=== PATIENT | female | born 1980 | race Caucasian/White ===

== ENCOUNTER 2017-02-23 15:39 | Emergency (ER) | payer MEDICAID ==
[~2017-02-23] VITALS: Ht 153.7 cm; Wt 70.9 kg
[2017-02-23 15:44] VITALS: BP 108/71
--- NOTE | 2017-02-23 16:55 | NUR ---
PT AMBULATED TO BED 5 AT THIS TIME.
--- NOTE | 2017-02-23 17:05 | NUR ---
CHARGE NURSE AND EMT COLLECTED SPECIMEN FROM NIPPLE DISCHARGE.
--- NOTE | 2017-02-23 17:14 | NUR ---
PATIENT PRESENTS TO ED WITH C/O "BLACK DISCHARGE" FROM BL NIPPLES X YESTERDAY. PT STATES HAS HAD BL BREAST PAIN X 2 MONTHS. DENIES ANY HX;DENIES N/V/D; SKIN IS PINK/WARM/DRY; AAOX4 WITH EVEN AND STEADY GAIT; LUNGS CLEAR BL; HR EVEN AND REGULAR; PT DENIES ANY FEVER, CP, SOB, OR COUGH AT THIS TIME; PATIENT STATES PAIN OF 8/10 AT THIS TIME; VSS; PATIENT POSITIONED FOR COMFORT; HOB ELEVATED; BEDRAILS UP X2; BED DOWN. ALL MONITORS IN PLACED;ER MD MADE AWARE OF PT STATUS.
--- NOTE | 2017-02-23 17:15 | NUR ---
XRAY AT BEDSIDE.
[2017-02-23 17:31] LABS: BASOPHILS # (AUTO) 0.2 K/uL (0.00-0.22); BASOPHILS % (AUTO) 1.8 % (0.0-2.0); EOSINOPHILS # (AUTO) 1.3 K/uL (0-0.4); EOSINOPHILS % (AUTO) 11.8 % (0.0-4.0); HEMOGLOBIN 12.5 g/dL (12.0-16.0); LYMPHOCYTES # (AUTO) 3.3 K/uL (2.5-16.5); LYMPHOCYTES % (AUTO) 30.5 % (20.5-51.1); MEAN CORPUSCULAR HEMOGLOBIN 29 pg (27-31); MEAN CORPUSCULAR HGB CONC 33 g/dL (33-37); MEAN CORPUSCULAR VOLUME 87 fL (80-94); MONOCYTES # (AUTO) 0.6 K/uL (0.8-1.0); MONOCYTES % (AUTO) 5.1 % (1.7-9.3); NEUTROPHILS # (AUTO) 5.6 K/uL (1.8-7.7); NEUTROPHILS % (AUTO) 50.8 % (42.2-75.2); PLATELET COUNT (AUTO) 247 K/uL (140-450); RED BLOOD CELL COUNT(AUTO) 4.38 MIL/uL (4.20-5.40); RED CELL DISTRIBUTION WIDTH 12.5 % (11.6-13.7); WHITE BLOOD COUNT (AUTO) 10.9 K/uL (4.8-10.8)
--- NOTE | 2017-02-23 17:50 | NUR ---
PT BACK FROM US VIA WHEELCHAIR
[2017-02-23 18:02] LABS: CALCIUM 8.8 mg/dL (8.5-10.1); CARBON DIOXIDE 26.8 mmol/L (21-32); CREATININE 0.7 mg/dL (0.6-1.3); POTASSIUM 3.8 mmol/L (3.5-5.1)
[2017-02-23 18:08] LABS: ALBUMIN 3.4 g/dL (3.4-5.0); TOTAL BILIRUBIN 0.3 mg/dL (0.0-1.0)
--- NOTE | 2017-02-23 18:55 | NUR ---
PT RESTING ON BED;NO ACUTE DISTRESS NOTED;WILL CONTINUE TO MONITOR PT.
[2017-02-23 19:10] VITALS: BP 118/71
--- NOTE | 2017-02-23 19:10 | NUR ---
Patient discharged with v/s stable. Written and verbal after care instructions given and explained. Patient verbalized understanding. Ambulatory with steady gait. All questions addressed prior to discharge. Advised to follow up with PMD.
== END 2017-02-23 19:10 | disposition home or self-care (01) ==
LOC: MED 15:39
DX: N64.52 Nipple discharge (principal)
CPT/HCPCS: 36415; 71010; 76641; 80053; 81002; 81025; 85025; 87070; 87075; 99285

== ENCOUNTER 2017-06-12 09:36 | Emergency (ER) | payer MEDICAID ==
[~2017-06-12] VITALS: Ht 157.5 cm; Wt 70.3 kg
[2017-06-12 09:37] VITALS: BP 133/62
--- NOTE | 2017-06-12 09:44 | NUR ---
PT AMB TO RESTROOM. UCUP GIVEN.
--- NOTE | 2017-06-12 10:01 | NUR ---
PATIENT BIB SELF FOR PELVIC PAIN SINCE YESTERDAY RADIATING TO LOWER BACK WITH SCANT VAGINAL BLEED.HX OGALLSF TONES.DENIES N/V/D; SKIN IS PINK/WARM/DRY; AAOX4 WITH EVEN AND STEADY GAIT; LUNGS CLEAR BL; HR EVEN AND REGULAR; PT DENIES ANY FEVER, CP, SOB, OR COUGH AT THIS TIME; PATIENT STATES PAIN OF 10/10 AT THIS TIME;PATIENT POSITIONED FOR COMFORT; HOB ELEVATED; BEDRAILS UP X2; BED DOWN. ER MD MADE AWARE OF PT STATUS.
[2017-06-12] MEDS ORDERED: KETOROLAC 60 MG/2 ML VIAL IM ONE (10:25)
[2017-06-12 10:29] LABS: HEMATOCRIT 36.6 % (36-48); HEMOGLOBIN 12.2 g/dL (12.0-16.0); MEAN CORPUSCULAR HEMOGLOBIN 29 pg (27-31); MEAN CORPUSCULAR HGB CONC 33 g/dL (33-37); MEAN CORPUSCULAR VOLUME 88 fL (80-94); PLATELET COUNT (AUTO) 232 K/uL (140-450); RED BLOOD CELL COUNT(AUTO) 4.17 MIL/uL (4.20-5.40); RED CELL DISTRIBUTION WIDTH 12.9 % (11.6-13.7); WHITE BLOOD COUNT (AUTO) 6.6 K/uL (4.8-10.8)
[2017-06-12 10:41] LABS: ANION GAP 10.7 (8-16); CARBON DIOXIDE 27.9 mmol/L (21-32); CREATININE 0.7 mg/dL (0.6-1.3); POTASSIUM 3.6 mmol/L (3.5-5.1)
[2017-06-12 10:43] LABS: APPEARANCE,URINE CLEAR (CLEAR); BILIRUBIN,URINE NEGATIVE (NEGATIVE); BLOOD, URINE 3+ (NEGATIVE); COLOR,URINE YELLOW (YELLOW); LEUKOCYTE ESTERASE ,URINE NEGATIVE (NEGATIVE); NITRITE, URINE NEGATIVE (NEGATIVE); UGLUCOSE NEGATIVE (NEGATIVE)
[2017-06-12 10:47] LABS: ALBUMIN 3.2 g/dL (3.4-5.0); TOTAL BILIRUBIN 0.3 mg/dL (0.0-1.0)
[2017-06-12 10:54] LABS: RBC,URINE 11-20 (MOD) /HPF (0-5); WBC,URINE 0-5 (RARE) /HPF (0-5)
[2017-06-12 11:14] LABS: LYMPHOCYTES % (MANUAL) 50 % (20-46)
[2017-06-12 11:15] LABS: EOSINOPHILS % (MANUAL) 15 % (0-4); MONOCYTES % (MANUAL) 3 % (5-12)
--- NOTE | 2017-06-12 11:36 | NUR ---
Pelvic exam performed by DR GREER with CHARGE NURSE ABNER at bedside for entire examination. Patient tolerated procedure PELVIC EXAM. Patient assisted to position of comfort after examination.
--- NOTE | 2017-06-12 12:17 | NUR ---
US AT BEDSIDE.
--- NOTE | 2017-06-12 12:48 | NUR ---
PT TO RM 8; RECEIVED REPORT FROM OTILIO CUELLAR; AWAITING US RESULTS; VSS; NAD; ALL NEEDS MET AT THIS TIME; WILL CONTINUE TO MONITOR.
[2017-06-12 13:32] VITALS: BP 121/80
== END 2017-06-12 13:32 | disposition home or self-care (01) ==
LOC: MED 09:36
DX: R10.2 Pelvic and perineal pain (principal); N93.9 Abnormal uterine and vaginal bleeding, unspecified; Z90.49 Acquired absence of other specified parts of digestive tract
CPT/HCPCS: 36415; 76856; 80053; 81001; 81025; 83690; 85025; 96372; 99285; J1885; Q0092

== ENCOUNTER 2017-08-31 14:19 | Emergency (ER) | payer MEDICAID ==
[~2017-08-31] VITALS: Ht 157.5 cm; Wt 66.3 kg
[2017-08-31 15:54] VITALS: BP 105/67
--- NOTE | 2017-08-31 16:10 | NUR ---
PATIENT AMBULATED TO BED 2
--- NOTE | 2017-08-31 16:20 | NUR ---
36f bib family with c/o light brown vaginal discharge and 10/10 "sharp" constant bl lower back pain. Pt denies any fevers or n/v/d. Pt is aox4 with steady gait. RR are even and unlabored. NAD. Pt positioned to comfort, bed down. ALl need met at this time. WIll continue to monitor.
[2017-08-31] MEDS ORDERED: KETOROLAC 60 MG/2 ML VIAL IM ONE (17:05)
[2017-08-31] MEDS ORDERED: cefTRIAXone 250 MG in LIDOCAINE MPF 1% - **ER/OR** 0.9 ML IM ONE (17:05)
--- NOTE | 2017-08-31 17:05 | NUR ---
Female Costume Designer accompanied female patient for Pelvic Exam. Culutres sent.
[2017-08-31 17:13] LABS: BILIRUBIN,URINE NEGATIVE (NEGATIVE); BLOOD, URINE 2+ (NEGATIVE); LEUKOCYTE ESTERASE ,URINE NEGATIVE (NEGATIVE); NITRITE, URINE NEGATIVE (NEGATIVE); UGLUCOSE NEGATIVE (NEGATIVE)
[2017-08-31 17:16] LABS: APPEARANCE,URINE CLEAR (CLEAR); COLOR,URINE YELLOW (YELLOW)
[2017-08-31 17:27] LABS: RBC,URINE NONE SEEN /HPF (0-5); WBC,URINE 0-5 (RARE) /HPF (0-5)
--- NOTE | 2017-08-31 18:43 | NUR ---
Patient discharged with v/s stable. Written and verbal after care instructions given and explained. Patient alert, oriented and verbalized understanding of instructions. Ambulatory with steady gait. All questions addressed prior to discharge. ID band removed. Patient advised to follow up with PMD. Rx of Doxycycline and Naprosyn given. Patient educated on indication of medication including possible reaction and side effects. Opportunity to ask questions provided and answered.
[2017-08-31 18:44] VITALS: BP 112/48
[2017-09-02 06:24] LABS: CHLAMYDIA TRACHOMATIS AMP DNA Negative (Negative)
== END 2017-08-31 18:43 | disposition home or self-care (01) ==
LOC: MED 14:19
DX: N89.8 Other specified noninflammatory disorders of vagina (principal); M54.5 Low back pain
CPT/HCPCS: 36415; 81001; 81025; 87070; 87205; 87210; 87491; 96372; 99284; J0696; J1885; J2001

== ENCOUNTER 2017-10-07 17:59 | Emergency (ER) | payer MEDICAID ==
[~2017-10-07] VITALS: Ht 160 cm; Wt 70.3 kg
[2017-10-07 18:19] VITALS: BP 101/64
--- NOTE | 2017-10-07 18:28 | NUR ---
PT AMB TO BED 10
--- NOTE | 2017-10-07 18:30 | NUR ---
36/F BIB SELF C/O MID BACK PAIN RADIATES TO MID ABD WITH NAUSEA X 2 DAYS. DENIES VAG BLEEDING , LMP 07/31/17. PT STATES . DENIES N/V/D; SKIN IS PINK/WARM/DRY; AAOX4 WITH EVEN AND STEADY GAIT; LUNGS CLEAR BL.PT DENIES ANY FEVER, CP, SOB, OR COUGH AT THIS TIME; PATIENT STATES PAIN OF 10/10 AT THIS TIME. PATIENT POSITIONED FOR COMFORT; HOB ELEVATED; BEDRAILS UP X2; BED DOWN. ER MD MADE AWARE OF PT STATUS.
[2017-10-07] MEDS ORDERED: KETOROLAC 30 MG/ML VIAL IVP ONE (19:15)
[2017-10-07] MEDS ORDERED: NACL 0.9% 500 ML IV ONE ×2 (19:15)
--- NOTE | 2017-10-07 19:21 | NUR ---
Pt report given to ALISA JETER . Transfer of care at this time.
--- NOTE | 2017-10-07 19:31 | NUR ---
PT TAKEN TO BED 3
--- NOTE | 2017-10-07 20:15 | NUR ---
Dr. Gambino evaluating patient at bedside.
[2017-10-07 23:53] VITALS: BP 101/69
--- NOTE | 2017-10-07 23:53 | NUR ---
Patient discharged with v/s stable. Written and verbal after care instructions given and explained. Patient alert, oriented and verbalized understanding of instructions. Ambulatory with steady gait. All questions addressed prior to discharge. ID band removed. Patient advised to follow up with PMD. Rx of DICLEGIS, MOTRIN given. Patient educated on indication of medication including possible reaction and side effects. Opportunity to ask questions provided and answered.
== END 2017-10-07 23:53 | disposition other institution (70) ==
LOC: MED 17:59
DX: O26.891 Other specified pregnancy related conditions, first trimester (principal); R10.9 Unspecified abdominal pain
CPT/HCPCS: 36415; 76770; 76801; 84702; 96361; 96374; 99285; J1885; J7030; Q0092

== ENCOUNTER 2018-03-08 13:34 | Emergency (ER) | payer MEDICAID ==
[~2018-03-08] VITALS: Ht 157.5 cm; Wt 67.6 kg
[2018-03-08 13:46] VITALS: BP 117/59
[2018-03-08 16:36] VITALS: BP 115/60
== END 2018-03-08 16:36 | disposition home or self-care (01) ==
LOC: MED 13:34
DX: N83.201 Unspecified ovarian cyst, right side (principal); R11.2 Nausea with vomiting, unspecified
CPT/HCPCS: 36415; 76856; 81002; 81025; 84702; 99285; Q0092

== ENCOUNTER 2018-06-09 08:02 | Emergency (ER) | payer MEDICAID ==
[~2018-06-09] VITALS: Ht 157.5 cm; Wt 78.0 kg
[2018-06-09 08:07] VITALS: BP 132/80
[2018-06-09 10:25] LABS: APPEARANCE,URINE CLOUDY (CLEAR); BILIRUBIN,URINE NEGATIVE (NEGATIVE); BLOOD, URINE TRACE (NEGATIVE); COLOR,URINE YELLOW (YELLOW); LEUKOCYTE ESTERASE ,URINE NEGATIVE (NEGATIVE); NITRITE, URINE NEGATIVE (NEGATIVE); UGLUCOSE NEGATIVE (NEGATIVE)
[2018-06-09 10:27] LABS: RBC,URINE 0-5 (RARE) /HPF (0-5); WBC,URINE 0-5 (RARE) /HPF (0-5)
[2018-06-09 10:28] LABS: URINE AMORPHOUS URATE 2+ /HPF (None Seen)
[2018-06-09 10:39] LABS: OTHER CRYSTALS,URINE CYSTINE /HPF (None Seen)
[2018-06-09 11:14] VITALS: BP 105/72
[2018-06-11 12:10] LABS: CHLAMYDIA TRACHOMATIS AMP DNA NEGATIVE (NEGATIVE)
== END 2018-06-09 11:09 | disposition home or self-care (01) ==
LOC: MED 08:02
DX: N39.0 Urinary tract infection, site not specified (principal); R11.0 Nausea; Z90.49 Acquired absence of other specified parts of digestive tract
CPT/HCPCS: 36415; 81001; 84702; 87205; 87210; 87491; 99284

== ENCOUNTER 2018-07-12 09:17 | Inpatient (IN) | payer MEDICAID ==
[~2018-07-12] VITALS: Ht 154.9 cm; Wt 77.1 kg
--- NOTE | 2018-07-12 09:17 | NUR ---
PATIENT BIB ALS TO ER BED 9.
[2018-07-12 09:19] VITALS: BP 106/71
[2018-07-12] MEDS ORDERED: NACL 0.9% 1,000 ML IV SCH (09:21)
[2018-07-12] MEDS ORDERED: NACL 0.9% 1,000 ML IV ONE (09:21)
[2018-07-12] MEDS ORDERED: ONDANSETRON 4 MG/2 ML VIAL IVP ONE (09:25)
[2018-07-12] MEDS ORDERED: KETOROLAC 30 MG/ML VIAL IVP ONE (09:25)
--- NOTE | 2018-07-12 09:26 | NUR ---
PATIENT PRESENTS TO ED WITH brought in by ems from home c/o severe suprapubic pain radiating towards back denies n/v/d , denies dysuria, and denies vaginal bleeding at this time. DENIES N/V/D; SKIN IS PINK/WARM/DRY; AAOX4 LUNGS CLEAR BL; HR EVEN AND REGULAR; PT DENIES ANY FEVER, CP, SOB, OR COUGH AT THIS TIME; PATIENT STATES PAIN OF 10/10 AT THIS TIME; VSS; PATIENT POSITIONED FOR COMFORT; HOB ELEVATED; BEDRAILS UP X2; BED DOWN. ER MD MADE AWARE OF PT STATUS.
--- NOTE | 2018-07-12 09:39 | NUR ---
medicated for lower abdominal pain with nsaid iv---although continues to c/o severe lower abdominal pain pt remains lethargic no grimace no moan requiring verbal coaching to speak up and keep eyes open. denies bright red blood in stool or urine admits has felt this pain before but never this severe; as per pt usualy alleviates with no intervention
[2018-07-12 09:51] LABS: BASOPHILS % (AUTO) 0.3 % (0.0-2.0); EOSINOPHILS # (AUTO) 0.5 K/uL (0-0.4); EOSINOPHILS % (AUTO) 4.4 % (0.0-4.0); HEMATOCRIT 38.1 % (36-48); HEMOGLOBIN 12.3 g/dL (12.0-16.0); LYMPHOCYTES # (AUTO) 1.3 K/uL (2.5-16.5); MEAN CORPUSCULAR HEMOGLOBIN 29 pg (27-31); MEAN CORPUSCULAR HGB CONC 32 g/dL (33-37); MEAN CORPUSCULAR VOLUME 89.1 fL (80-94); MONOCYTES # (AUTO) 0.4 K/uL (0.8-1.0); MONOCYTES % (AUTO) 3.6 % (1.7-9.3); NEUTROPHILS # (AUTO) 9.5 K/uL (1.8-7.7); NEUTROPHILS % (AUTO) 80.7 % (42.2-75.2); PLATELET COUNT (AUTO) 221 K/uL (140-450); RED BLOOD CELL COUNT(AUTO) 4.27 MIL/uL (4.20-5.40); RED CELL DISTRIBUTION WIDTH 12.8 % (11.6-13.7); WHITE BLOOD COUNT (AUTO) 11.7 K/uL (4.8-10.8)
--- NOTE | 2018-07-12 09:51 | NUR ---
US AT BEDSIDE FOR INTERVENTION.
--- NOTE | 2018-07-12 10:00 | NUR ---
BEDSIDE ULTRASOUND COMPLETED
[2018-07-12 10:07] LABS: ANION GAP 8.4 (8-16); CARBON DIOXIDE 26.2 mmol/L (21-32); CREATININE 0.8 mg/dL (0.6-1.3); POTASSIUM 4.6 mmol/L (3.5-5.1)
[2018-07-12 10:13] LABS: ALBUMIN 3.4 g/dL (3.4-5.0); TOTAL BILIRUBIN 0.4 mg/dL (0.0-1.0)
[2018-07-12 10:21] LABS: BILIRUBIN,URINE NEGATIVE (NEGATIVE); BLOOD, URINE TRACE-I (NEGATIVE); COLOR,URINE YELLOW (YELLOW); LEUKOCYTE ESTERASE ,URINE TRACE (NEGATIVE); NITRITE, URINE NEGATIVE (NEGATIVE); UGLUCOSE TRACE (NEGATIVE)
[2018-07-12 10:22] LABS: APPEARANCE,URINE SLIGHTLY CLOUDY (CLEAR)
--- NOTE | 2018-07-12 10:34 | NUR ---
CT CONSENT EXPLAINED TO PT AND SIGNED BY PT; PT HOLDING CONVERSATION ON CELLPHONE
--- NOTE | 2018-07-12 10:34 | NUR ---
PATIENT TAKEN TO CT WITH BHANU VIA MARCIARCHRISTIAN.
[2018-07-12 10:57] LABS: RBC,URINE 3-10 (FEW) /HPF (0-5); WBC,URINE 6-15 (FEW) /HPF (0-5)
[2018-07-12] MEDS ORDERED: LEVOFLOXACIN 500 MG/D5W PREMIX 100 ML IV ONE (11:00)
--- NOTE | 2018-07-12 11:35 | NUR ---
PT ADMITS PAIN IS BELOW TOLERABLE LEVEL 4/10 IS ABLE TO REST IN COMFORT AT THIS TIME. CONTINUES TO WAIT FOR DISPO
--- NOTE | 2018-07-12 12:30 | NUR ---
LINEN CHANGED S/P BED YAN USE ; PT CONTINUES TO ADMIT PAIN BELOW TOLERABLE LEVEL 4/10 AT THIS TIME---INTERACTIVE WITH STAFF AT BEDSIDE. 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
--- NOTE | 2018-07-12 13:35 | NUR ---
NOTIFIED PT STATES HER PAIN HAS RETURNED---DISPO IS TO ADMIT
[2018-07-12] MEDS ORDERED: DOCUSATE SODIUM 100 MG GELCAP PO PRN (14:15)
[2018-07-12] MEDS ORDERED: LORazepam 2 MG/ML VIAL IM/IVP PRN (14:15)
[2018-07-12] MEDS ORDERED: ACETAMINOPHEN 325 MG TAB PO PRN (14:15)
[2018-07-12] MEDS ORDERED: ONDANSETRON 4 MG/2 ML VIAL IM/IVP PRN (14:15)
[2018-07-12] MEDS ORDERED: ZOLPIDEM 5 MG TAB PO PRN (14:15)
--- NOTE | 2018-07-12 14:25 | NUR ---
CXR AT BEDSIDE
--- NOTE | 2018-07-12 14:42 | NUR ---
VERBAL ORDER RECIEVED FROM DR. BLACK TO GIVE 2MG MORPHINE D/T PT IN 05/05 PAIN.
[2018-07-12] MEDS ORDERED: MORPHINE SULFATE 2 MG/ML SYR IVP ONE (14:45)
[2018-07-12] MEDS ORDERED: MORPHINE SULFATE 4 MG/ML SYR ONE (14:51)
--- NOTE | 2018-07-12 14:55 | NUR ---
PT ARRIVED FROM ER IN WHEELCHAIR, REPORT RECEIVED FROM JUSTINA, PT AAOX4, TRANSFERS SELF FROM HALLWAY TO BED WITHOUT PROBLEM, RESP EVEN UNLABORED, SKIN WARM DRY COLOR WNL. PT C/O RIGHT SIDED ABD PAIN STARTED THIS AM, DENIES N/V/D/F, PT ORIENTED TO ROOM AND FLOOR, CALL MELGOZA WITHIN REACH, SIDE RAIL UP, BED LOCKED IN LOW POSITION, WILL CONTINUE TO MONITOR.
--- NOTE | 2018-07-12 15:03 | NUR ---
Patient will be admitted to care of DR. GUERRA. Admited to [facility]. Will go to room 112A. Belongings list completed. Report to JULIAN CUELLAR.
[2018-07-12 15:10] VITALS: BP 98/55
[2018-07-12] MEDS: NACL 0.9% 1,000 ML IV SCH (15:24)
[2018-07-12 15:28] LABS: BARBITURATE, URINE NEG. ng/ml (NEG <=200); BENZODIAZEPINE, URINE NEG. ng/mL (NEG <=200); CANNABINOID, URINE NEG. ng/mL (NEG <=50); COCAINE, URINE NEG. ng/mL (NEG <=300); OPIATE, URINE NEG. ng/mL (NEG <=2000); PHENCYCLIDINE SCREEN,URINE NEG. ng/mL (NEG <=25)
[2018-07-12 15:53] LABS: MAGNESIUM 1.7 mg/dL (1.8-2.4); PHOSPHORUS 2.6 mg/dL (2.5-4.9); PROTHROMBIN TIME 10.8 secs (10.8-13.4); THYROID STIMULATING HORMONE 2.41 uIU/mL (0.34-3.74)
[2018-07-12] MEDS: HYDROcodone/APAP 5/325 MG 1 TAB TAB PO PRN ×2 (16:02→23:22)
--- NOTE | 2018-07-12 17:15 | NUR ---
PT UP OUT OF BED WITH STEADY GAIT, AMBULATED TO BATHROOM, DAUGHTER AT BEDSIDE, WILL CONTINUE TO MONITOR.
[2018-07-12] MEDS ORDERED: MAGNESIUM OXIDE 400 MG TAB PO SCH (17:30)
--- NOTE | 2018-07-12 18:00 | NUR ---
PT C/O PERISISTENT PAIN, PT STATES ONLY IMPROVED A LITTLE WITH NORCO, DR SAEZ NOTIFIED.
[2018-07-12] MEDS ORDERED: KETOROLAC 30 MG/ML VIAL IVP PRN (18:30)
--- NOTE | 2018-07-12 19:00 | NUR ---
TORADOL GIVEN FOR PAIN, PT STATES RIGHT UPPER ABD RADIATES TO SUPRAPUBIC AND BACK AREA, IVF INFUSING WELL, IV SITE WNL, WILL CONTINUE TO MONTIOR.
--- NOTE | 2018-07-12 19:27 | NUR ---
RECEIVED REPORT FROM DAY SHIFT NURSE, JULIAN, AT PT BEDSIDE. PT IN STABLE CONDITION. PT IS AAOX4. PT IS ON RA WITH RESPIRATIONS EVEN AND UNLABORED. SKIN IS INTACT. IV ACCESS IN R HAND 20G WITH IVF RUNNING PER MD ORDERS. IV IS PATENT AND INTACT. NO C/O PAIN AT THIS TIME. BED IS LOCKED, LOW POSITION WITH SIDE RAILS UP X2. CALL LIGHT IS WITHIN REACH. BOARD UPDATED. WILL CONTINUE TO MONITOR.
--- NOTE | 2018-07-12 19:27 | NUR ---
REPORT GIVEN TO PROGRAM DIRECTOR AIR TALENT NURSE ROXANNA CALABRESE IN STABLE CONDITION.
--- NOTE | 2018-07-12 23:22 | NUR ---
PT C/O PAIN, NORCO GIVEN. PT TOLERATED WELL. BLANKET GIVEN. NO S/SX OF DISTRESS. WILL CONTINUE TO MONITOR.
[2018-07-13] VITALS: BP 89/57
--- NOTE | 2018-07-13 00:22 | NUR ---
PT NOW SLEEPING IN BED. NO S/SX OF DISTRESS. WILL CONTINUE TO MONITOR.
--- NOTE | 2018-07-13 01:30 | NUR ---
NEW ORDER NOTED FOR K-RIDER AT 50MLS/HR. IV HUNG ORDERED.
--- NOTE | 2018-07-13 02:56 | NUR ---
PT ASLEEP IN BED. NO S/SX OF DISTRESS. WILL CONTINUE TO MONITOR.
[2018-07-13] MEDS: NACL 0.9% 1,000 ML IV SCH (03:37)
--- NOTE | 2018-07-13 03:37 | NUR ---
NEW BAG OF IVF STARTED.
--- NOTE | 2018-07-13 07:10 | NUR ---
RECEIVED PT REPORT FROM IT QUALITY ANALYST NURSE. PT IS AWAKE AND ALERT, NO S/S OF DISTRESS OR SOB, NO C/O PAIN AT THE MOMENT. PT IS ON ROOM AIR. SKIN IS INTACT. IV SITE NOTED ON R HAND, 20 GAUGE, INFUSING NS 80 ML/HR. CALL LIGHT IS WITHIN REACH. WILL CONTINUE TO MONITOR.
--- NOTE | 2018-07-13 07:11 | NUR ---
ENDORSED PT TO DAY SHIFT NURSE FOR CONTINUITY OF CARE. PT IN STABLE CONDITION.
[2018-07-13 08:00] VITALS: BP 100/56
--- NOTE | 2018-07-13 08:45 | NUR ---
PATIENT HAS BEEN SCREENED AND CATEGORIZED LOW NUTRITION RISK. PATIENT WILL BE SEEN WITHIN 7 DAYS OF ADMISSION. 07/19/[address]
--- NOTE | 2018-07-13 10:00 | NUR ---
PT IS CURRENTLY PLACED NPO FOR HER UPCOMING HIDA SCAN THIS AFTERNOON. PT IS AWARE OF THE NEED FOR NPO STATUS.
[2018-07-13 11:13] LABS: HEMATOCRIT 34.3 % (36-48); HEMOGLOBIN 11.3 g/dL (12.0-16.0); MEAN CORPUSCULAR HEMOGLOBIN 29 pg (27-31); MEAN CORPUSCULAR HGB CONC 33 g/dL (33-37); MEAN CORPUSCULAR VOLUME 89.7 fL (80-94); PLATELET COUNT (AUTO) 185 K/uL (140-450); RED BLOOD CELL COUNT(AUTO) 3.83 MIL/uL (4.20-5.40); RED CELL DISTRIBUTION WIDTH 13.2 % (11.6-13.7); WHITE BLOOD COUNT (AUTO) 3.9 K/uL (4.8-10.8)
[2018-07-13 11:30] LABS: CHOL/HDL RATIO 3.2 (1-4.5)
[2018-07-13 11:33] LABS: MAGNESIUM 1.9 mg/dL (1.8-2.4); PHOSPHORUS 2.1 mg/dL (2.5-4.9)
[2018-07-13] MEDS: DEXT 5% / NACL 0.45% 1,000 ML IV SCH (11:45)
[2018-07-13 12:20] LABS: ANION GAP 13.3 (8-16); CARBON DIOXIDE 24.9 mmol/L (21-32); CREATININE 0.6 mg/dL (0.6-1.3); POTASSIUM 3.2 mmol/L (3.5-5.1)
--- NOTE | 2018-07-13 13:00 | NUR ---
PT IS AWAKE AND ALERT IN BED, DAUGHTER VISITING AT BEDSIDE. NPO. WILL CONTINUE TO MONITOR.
[2018-07-13 13:37] LABS: BASOPHILS % (MANUAL) 0 % (0-2); EOSINOPHILS % (MANUAL) 20 % (0-4); LYMPHOCYTES % (MANUAL) 32 % (20-46); MONOCYTES % (MANUAL) 9 % (5-12)
[2018-07-13] MEDS ORDERED: SODIUM PHOS / POTASSIUM PHOS 1 PKT PDR PO SCH (15:00)
[2018-07-13 16:00] VITALS: BP 118/79
--- NOTE | 2018-07-13 16:10 | NUR ---
PT GOING OFF THE UNIT FOR HER HIDA SCAN. PT IS ALERT AND AWAKE, AND IN NO DISTRESS.
--- NOTE | 2018-07-13 16:30 | NUR ---
PT IS BACK IN HER ROOM FROM HIDA SCAN. Addendum: 07/13/18 at 1817 by Manasa Sheriff RN CORRECTION: PT CAME BACK ON THE UNIT FROM THE HIDA SCAN AT 18:00
[2018-07-13] MEDS ORDERED: INFLUENZA VIRUS VACCINE QUAD 0.5 ML SYR IMVAC PRN (16:35)
--- NOTE | 2018-07-13 18:10 | NUR ---
CALLED [facility] TO BRING A LATE DINNER TRAY FOR PT SHE IS NO LONGER NPO.
--- NOTE | 2018-07-13 19:30 | NUR ---
REPORT RECEIVED FROM JAMES CUELLAR DAYSHIFT NURSE, AT BEDSIDE, PT IN STABLE CONDITION.
--- NOTE | 2018-07-13 19:30 | NUR ---
PT ENDORSED TO LEGAL ARBITRATOR NURSE IN STABLE CONDITION.
--- NOTE | 2018-07-13 20:00 | NUR ---
PT IN LOW BED WITH SIDE RAILS UP X2 AND CALL MELGOZA IN REACH. PT IS AOX4, BREATHING EASY AND UNLABORED, SHE IS AMBULATORY WITH NO SKIN ISSUES. PT HAS 20G ON R HAND RUNNING D5 N/S AT 80MLS/HR. PT HAS NO C/O VOICED AT THIS TIME. V/S FOLLOWS T 98.0 P 69 R 18 B/P 99/55 02 98% ON ROOM AIR.
--- NOTE | 2018-07-13 21:50 | NUR ---
PT IV PUMP BEEPING. PT IV SITE FLUSHED PATENT, AND LINE WAS DISCONNECTED AND RE-PRIMED. PT NOTED WITH LOW POTASSIUM OF 3.2. MESSAGE LEFT WITH PRIMARY MD RESIDENT MD DR. SCHMIDT. AWAITING RESPONSE.
--- NOTE | 2018-07-13 23:30 | NUR ---
SPOKE WITH PRIMARY RESIDENT MD REGARDING LOW POTASSUIM LEVEL OF PT LABS, AWAITING NEW ORDERS.
[2018-07-14] VITALS: BP 106/65
[2018-07-14] MEDS: DEXT 5% / NACL 0.45% 1,000 ML IV SCH ×2 (00:15→12:53)
[2018-07-14] MEDS ORDERED: KCL 20 MEQ/WATER INJ PREMIX 100 ML IV SCH (00:30)
--- NOTE | 2018-07-14 02:00 | NUR ---
PT C/O THAT IV SITE IS BURNING, IV SITE FLUSHED X2 AND PT STILL C/O OF PAIN. INFUSION STOPPED AND DR. THOMAS MADE AWARE. ROXANA GANDHI SAID HE WOULD ORDER POTASSIUM TABLETS. AWAITING PHARMACY VERIFICATION.
[2018-07-14] MEDS: HYDROcodone/APAP 5/325 MG 1 TAB TAB PO PRN (02:27)
--- NOTE | 2018-07-14 02:30 | NUR ---
PT GIVEN 1 TAB OF NORCO PO/PRN FOR PAIN IN ARM. NEW IV SITE PROVIDED ON LEFT HAND 20G. ICE BAG ALSO PROVIDED TO OLD IV SITE.
[2018-07-14] MEDS ORDERED: POTASSIUM CHLORIDE 10 MEQ TABER PO SCH (03:00)
--- NOTE | 2018-07-14 03:30 | NUR ---
PT SAID SHE IS FEELING BETTER FORM THE NORCO JUST TIRED. PT GIVEN 40MEQ FOR DECREASED POTASSIUM LEVEL.
[2018-07-14 05:58] LABS: BASOPHILS % (AUTO) 0.7 % (0.0-2.0); EOSINOPHILS # (AUTO) 0.8 K/uL (0-0.4); EOSINOPHILS % (AUTO) 14.4 % (0.0-4.0); HEMATOCRIT 35.4 % (36-48); HEMOGLOBIN 11.4 g/dL (12.0-16.0); LYMPHOCYTES % (AUTO) 35.8 % (20.5-51.1); MEAN CORPUSCULAR HEMOGLOBIN 29 pg (27-31); MEAN CORPUSCULAR HGB CONC 32 g/dL (33-37); MEAN CORPUSCULAR VOLUME 89.5 fL (80-94); MONOCYTES # (AUTO) 0.3 K/uL (0.8-1.0); MONOCYTES % (AUTO) 5.7 % (1.7-9.3); NEUTROPHILS # (AUTO) 2.5 K/uL (1.8-7.7); NEUTROPHILS % (AUTO) 43.4 % (42.2-75.2); PLATELET COUNT (AUTO) 216 K/uL (140-450); RED BLOOD CELL COUNT(AUTO) 3.96 MIL/uL (4.20-5.40); RED CELL DISTRIBUTION WIDTH 13.2 % (11.6-13.7); WHITE BLOOD COUNT (AUTO) 5.7 K/uL (4.8-10.8)
--- NOTE | 2018-07-14 06:00 | NUR ---
PT UP AND STAND BY ASSIST TO BATHROOM. DENIES PAIN AT THIS TIME.
[2018-07-14 06:22] LABS: ANION GAP 11.3 (8-16); CARBON DIOXIDE 25.6 mmol/L (21-32); CREATININE 0.5 mg/dL (0.6-1.3); POTASSIUM 3.9 mmol/L (3.5-5.1)
[2018-07-14 06:32] LABS: PHOSPHORUS 2.9 mg/dL (2.5-4.9)
--- NOTE | 2018-07-14 07:25 | NUR ---
RECEIVED PT REPORT FROM FILTER CHANGER NURSE. PT IS AWAKE AND ALERT SITTING UP IN BED, NO S/S OF DISTRESS OR SOB NOTED. IV SITE NOTED ON THE L HAND, 20 GAUGE, INFUSING D5 1/2 NS AT 80 ML/HR. SKIN IS INTACT. PT IS ON ROOM AIR. WILL CONTINUE TO MONITOR.
--- NOTE | 2018-07-14 07:35 | NUR ---
REPORT GIVEN TO JAMES CUELLAR DAYSHIFT NURSE AT BEDSIDE FOR CONTINUITY OF CARE, PT IN STABLE CONDITION.
[2018-07-14 08:00] VITALS: BP 105/70
--- NOTE | 2018-07-14 10:00 | NUR ---
PT IS SITTING UP IN BED, VISITING WITH HER DAUGHTER. NO S/S OF DISTRESS. IV INFUSING WITHOUT ISSUES. CONTINUING TO MONITOR.
[2018-07-14] MEDS ORDERED: CEPH-1019 PO ×2 (12:26→13:30)
[2018-07-14] MEDS ORDERED: LACT10CA1 PO ×2 (12:27→13:30)
--- NOTE | 2018-07-14 14:31 | NUR ---
PT IS DISCHARGING HOME. DISCHARGE INSTRUCTIONS GIVEN, PT VERBALIZED UNDERSTANDING OF TEACHING. PT SIGNED ALL DISCHARGE DOCUMENTS. IV SITE DC'D, WRIST BANDS REMOVED. PT WAS GIVEN FLU SHOT BEFORE DISCHARGE. PT LEFT WITH ALL HER BELONGINGS IN STABLE CONDITION.
== END 2018-07-14 14:30 | disposition home or self-care (01) | DRG 463 ==
LOC: MED 09:17 → MERGE 09:17 → MTU 14:19
PROVIDERS: ADMIT General Practice; ATTEND General Practice
DX: N39.0 Urinary tract infection, site not specified (principal); N17.0 Acute kidney failure with tubular necrosis; E83.39 Other disorders of phosphorus metabolism; E83.42 Hypomagnesemia; I95.9 Hypotension, unspecified; E66.9 Obesity, unspecified; Z68.32 Body mass index [BMI] 32.0-32.9, adult; Z90.49 Acquired absence of other specified parts of digestive tract; R73.9 Hyperglycemia, unspecified; Z23 Encounter for immunization; N83.02 Follicular cyst of left ovary; N83.01 Follicular cyst of right ovary
CPT/HCPCS: 36415; 71045; 76856; 78445; 80048; 80053; 80305; 81001; 82150; 83036; 83690; 83735; 84100; 84134; 84443; 84702; 84703; 85025; 85610; 85730; 86900; 86901; 87040; 87081; 87086; 90658; 96361; 96365; 96375; 99285; A9510; J0696; J1885; J1956; J2270; J2405; J3480; J7030; J7060; Q0092; Q9967

== ENCOUNTER 2018-10-20 14:12 | Emergency (ER) | payer MEDICAID ==
[~2018-10-20] VITALS: Ht 157.5 cm; Wt 70.3 kg
[~2018-10-20 14:12] MED LIST: CEPH-1019 PO; LACT10CA1 PO
[2018-10-20 14:18] VITALS: BP 103/65
--- NOTE | 2018-10-20 14:37 | NUR ---
PT BIB SELF TO THE ED WITH THE CHIEF C/O THROAT PAIN, ABDOMINAL PAIN AND BACK PAIN FOR A WEEK. DENIES BURNING OR FREQUENCY OF URINATION. HAD FEVER LAST NIGHT. TOOK IBUPROFEN LAST NIGHT. AFEBRILE AT THIS TIME. +DRY COUGH. LUNGS CLEAR. ABDOMEN SOFT, ROUND AND TENDER. NORMAL BOWEL SOUND. DENIES DIARRHEA. VSS. ER MD AWARE.
[2018-10-20 15:52] LABS: APPEARANCE,URINE CLEAR (CLEAR); BILIRUBIN,URINE NEGATIVE (NEGATIVE); BLOOD, URINE TRACE-I (NEGATIVE); COLOR,URINE YELLOW (YELLOW); LEUKOCYTE ESTERASE ,URINE TRACE (NEGATIVE); NITRITE, URINE NEGATIVE (NEGATIVE); UGLUCOSE NEGATIVE (NEGATIVE)
[2018-10-20 15:52] LABS: BASOPHILS # (AUTO) 0.1 K/uL (0.00-0.22); BASOPHILS % (AUTO) 0.7 % (0.0-2.0); EOSINOPHILS # (AUTO) 1.2 K/uL (0-0.4); EOSINOPHILS % (AUTO) 12.8 % (0.0-4.0); HEMATOCRIT 36.9 % (36-48); HEMOGLOBIN 12.3 g/dL (12.0-16.0); LYMPHOCYTES # (AUTO) 2.8 K/uL (2.5-16.5); LYMPHOCYTES % (AUTO) 29.6 % (20.5-51.1); MEAN CORPUSCULAR HEMOGLOBIN 29 pg (27-31); MEAN CORPUSCULAR HGB CONC 33 g/dL (33-37); MEAN CORPUSCULAR VOLUME 88.6 fL (80-94); MONOCYTES # (AUTO) 0.5 K/uL (0.8-1.0); MONOCYTES % (AUTO) 5.4 % (1.7-9.3); NEUTROPHILS # (AUTO) 4.9 K/uL (1.8-7.7); NEUTROPHILS % (AUTO) 51.5 % (42.2-75.2); PLATELET COUNT (AUTO) 279 K/uL (140-450); RED BLOOD CELL COUNT(AUTO) 4.17 MIL/uL (4.20-5.40); WHITE BLOOD COUNT (AUTO) 9.5 K/uL (4.8-10.8)
[2018-10-20 16:03] LABS: ANION GAP 14.1 (8-16); CARBON DIOXIDE 25.8 mmol/L (21-32); CREATININE 0.5 mg/dL (0.6-1.3); POTASSIUM 3.9 mmol/L (3.5-5.1)
[2018-10-20 16:09] LABS: ALBUMIN 3.3 g/dL (3.4-5.0); TOTAL BILIRUBIN 0.1 mg/dL (0.0-1.0)
[2018-10-20 16:12] LABS: RBC,URINE 0-5 /HPF (0-5); WBC,URINE 0-5 /HPF (0-5)
--- NOTE | 2018-10-20 16:42 | NUR ---
PT APPEARS TO BE RELAXED, RESTING IN BED. NO C/O PAIN OR NAUSEA. NO VOMTING NOTED AT THIS TIME.
--- NOTE | 2018-10-20 17:04 | NUR ---
PT LEFT TO CT
--- NOTE | 2018-10-20 17:21 | NUR ---
BACK FROM CT.
--- NOTE | 2018-10-20 17:57 | NUR ---
REEVALUATED BY ALMA ROSA BLACKWOOD.
--- NOTE | 2018-10-20 18:07 | NUR ---
Patient discharged with v/s stable. Written and verbal after care instructions given and explained. Patient alert, oriented and verbalized understanding of instructions. Ambulatory with steady gait. All questions addressed prior to discharge. ID band removed. Patient advised to follow up with PMD. Rx of BENTYL, MIRALAX POWDER FOR SOLUTION AND ZOFRAN given. Patient educated on indication of medication including possible reaction and side effects. Opportunity to ask questions provided and answered.
[2018-10-20 18:08] VITALS: BP 112/65
== END 2018-10-20 18:07 | disposition home or self-care (01) ==
LOC: MED 14:12
DX: R10.84 Generalized abdominal pain (principal); M54.5 Low back pain; R11.0 Nausea; J02.9 Acute pharyngitis, unspecified; Z79.2 Long term (current) use of antibiotics; Z79.899 Other long term (current) drug therapy
CPT/HCPCS: 36415; 80053; 81001; 81025; 84702; 85025; 99284

== ENCOUNTER 2019-01-05 16:14 | Emergency (ER) | payer MEDICAID ==
[~2019-01-05] VITALS: Ht 157.5 cm; Wt 73.5 kg
[2019-01-05 16:23] VITALS: BP 110/83
--- NOTE | 2019-01-05 16:31 | NUR ---
PATIENT AMBULATED TO BED 7 Addendum: 01/05/19 at 1631 by MEDFN PATIEN AMBULATED TO BED 6.
--- NOTE | 2019-01-05 17:03 | NUR ---
PATIENT PRESENTS TO ED WITH C/O INTERMITTENT VAGINAL BLEEDING. PT LMP NOVEMBER 2018. PT DENIES ANY FEVER, NAUSEA OR VOMITING. PATIENT STATES PAIN OF 6/10 TO LOWER BACK AT THIS TIME; VSS; +DYSURIA, +FREQUENCY AND BURNING SENSATION WHEN URINATING. PATIENT POSITIONED FOR COMFORT; HOB ELEVATED; BEDRAILS UP X1; BED DOWN. PENDING ER MD EVALUATION.
[2019-01-05 17:16] LABS: APPEARANCE,URINE CLEAR (CLEAR); BILIRUBIN,URINE NEGATIVE (NEGATIVE); BLOOD, URINE TRACE-I (NEGATIVE); COLOR,URINE YELLOW (YELLOW); LEUKOCYTE ESTERASE ,URINE TRACE (NEGATIVE); NITRITE, URINE NEGATIVE (NEGATIVE); PH,URINE 6.5 (5.0-9.0); UGLUCOSE NEGATIVE (NEGATIVE)
[2019-01-05 17:16] LABS: BASOPHILS # (AUTO) 0.1 K/uL (0.00-0.22); BASOPHILS % (AUTO) 0.6 % (0.0-2.0); EOSINOPHILS # (AUTO) 0.8 K/uL (0-0.4); EOSINOPHILS % (AUTO) 10.6 % (0.0-4.0); HEMATOCRIT 34.5 % (36-48); HEMOGLOBIN 11.5 g/dL (12.0-16.0); LYMPHOCYTES # (AUTO) 2.9 K/uL (2.5-16.5); LYMPHOCYTES % (AUTO) 36.7 % (20.5-51.1); MEAN CORPUSCULAR HEMOGLOBIN 29 pg (27-31); MEAN CORPUSCULAR HGB CONC 33 g/dL (33-37); MEAN CORPUSCULAR VOLUME 87.7 fL (80-94); MONOCYTES # (AUTO) 0.4 K/uL (0.8-1.0); MONOCYTES % (AUTO) 5.1 % (1.7-9.3); NEUTROPHILS # (AUTO) 3.7 K/uL (1.8-7.7); PLATELET COUNT (AUTO) 279 K/uL (140-450); RED BLOOD CELL COUNT(AUTO) 3.94 MIL/uL (4.20-5.40); RED CELL DISTRIBUTION WIDTH 13.2 % (11.6-13.7); WHITE BLOOD COUNT (AUTO) 7.8 K/uL (4.8-10.8)
[2019-01-05 17:22] LABS: ANION GAP 13.2 (8-16); CARBON DIOXIDE 26.3 mmol/L (21-32); CREATININE 0.7 mg/dL (0.6-1.3); POTASSIUM 3.5 mmol/L (3.5-5.1)
[2019-01-05 17:36] LABS: RBC,URINE 0-5 /HPF (0-5); WBC,URINE 0-5 /HPF (0-5)
[2019-01-05 18:47] VITALS: BP 110/83
== END 2019-01-05 18:47 | disposition home or self-care (01) ==
LOC: MED 16:14
DX: N39.0 Urinary tract infection, site not specified (principal); Z79.899 Other long term (current) drug therapy
CPT/HCPCS: 36415; 80048; 81001; 81025; 84702; 85025; 99283

== ENCOUNTER 2019-04-06 10:07 | Emergency (ER) | payer MEDICAID ==
[~2019-04-06] VITALS: Ht 162.6 cm; Wt 72.6 kg
[2019-04-06 10:09] VITALS: BP 109/72
--- NOTE | 2019-04-06 10:43 | NUR ---
PT BIB SLEF WITH C/O VAGINAL BLEEDING: BROWN SPOT X TODAY & NAUSEA,LOWER ABDOMINAL PAIN X YESTERDAY. LMP 02/28/19. PAIN 10/10 AT THE PELVIC REGION, PER PT SHE THINKS IS . LAST TIME SHE VISITED, URINE PREG TEST WAS NEG, ONLY BLOOD WORK TEST CONFIRMS HER . MADE AWARE. URINE TEST IS NEGATIVE AT THIS TIME. DENIES ANY CHILLS OR FEVER, NO DIFFICULTY IN URINATION OR ANY BURNING SENSATION WHILE URINATING. NO MEDS TAKEN AT HOME. LMP 02/28/2019. DENIES ANY PAST MEDICA HX. WILL CONTINUE TO MONITOR PT. MED HX: DENIES
--- NOTE | 2019-04-06 11:27 | NUR ---
CALLED LAB FOR THE BLOOD DRAW . WILL DRAW THE BLOOD.
[2019-04-06 11:42] LABS: BASOPHILS % (AUTO) 0.6 % (0.0-2.0); EOSINOPHILS # (AUTO) 1.1 K/uL (0-0.4); EOSINOPHILS % (AUTO) 14.2 % (0.0-4.0); HEMATOCRIT 37.2 % (36-48); HEMOGLOBIN 12.5 g/dL (12.0-16.0); LYMPHOCYTES # (AUTO) 2.5 K/uL (2.5-16.5); LYMPHOCYTES % (AUTO) 33.4 % (20.5-51.1); MEAN CORPUSCULAR HEMOGLOBIN 30 pg (27-31); MEAN CORPUSCULAR HGB CONC 34 g/dL (33-37); MEAN CORPUSCULAR VOLUME 88.6 fL (80-94); MONOCYTES # (AUTO) 0.4 K/uL (0.8-1.0); MONOCYTES % (AUTO) 4.7 % (1.7-9.3); NEUTROPHILS # (AUTO) 3.5 K/uL (1.8-7.7); NEUTROPHILS % (AUTO) 47.1 % (42.2-75.2); PLATELET COUNT (AUTO) 244 K/uL (140-450); RED BLOOD CELL COUNT(AUTO) 4.19 MIL/uL (4.20-5.40); RED CELL DISTRIBUTION WIDTH 13.6 % (11.6-13.7); WHITE BLOOD COUNT (AUTO) 7.5 K/uL (4.8-10.8)
--- NOTE | 2019-04-06 12:30 | NUR ---
AWAITING DISCHARGE INFO BY ER MD DR BAEZA
--- NOTE | 2019-04-06 12:49 | NUR ---
AWAITING DISCHARGE INFO BY ER MD DR BAEZA
[2019-04-06 13:18] VITALS: BP 113/68
--- NOTE | 2019-04-06 13:19 | NUR ---
Patient discharged with v/s stable. Written and verbal after care instructions given and explained. Patient alert, oriented and verbalized understanding of instructions. Ambulatory with steady gait. All questions addressed prior to discharge. ID band removed. Patient advised to follow up with PMD. Rx of BENTYL given. Patient educated on indication of medication including possible reaction and side effects. Opportunity to ask questions provided and answered.
== END 2019-04-06 12:55 | disposition home or self-care (01) ==
LOC: MED 10:07
DX: A08.4 Viral intestinal infection, unspecified (principal); N93.8 Other specified abnormal uterine and vaginal bleeding; Z79.2 Long term (current) use of antibiotics; Z79.899 Other long term (current) drug therapy
CPT/HCPCS: 36415; 81002; 81025; 84703; 85025; 99283

== ENCOUNTER 2019-04-12 15:23 | Emergency (ER) | payer MEDICAID ==
[~2019-04-12] VITALS: Ht 157.5 cm; Wt 73.1 kg
[2019-04-12 15:29] VITALS: BP 111/81
--- NOTE | 2019-04-12 15:34 | NUR ---
PATIENT AMBULATED TO BED 12
--- NOTE | 2019-04-12 15:52 | NUR ---
Patient present to ER for sore throat and headache x 2 days 10 pain. Patient is AA&Ox4. Respirations even and unlabored. Updated on POC, verbalized understanding. Will continue to monitor.
[2019-04-12] MEDS ORDERED: PANTOPRAZOLE 40 MG TABEC PO ONE (16:05)
[2019-04-12] MEDS ORDERED: ONDANSETRON 4 MG ODT PO ONE (16:05)
[2019-04-12 16:43] LABS: BASOPHILS % (AUTO) 0.6 % (0.0-2.0); EOSINOPHILS % (AUTO) 11.4 % (0.0-4.0); HEMATOCRIT 35.9 % (36-48); HEMOGLOBIN 12.1 g/dL (12.0-16.0); LYMPHOCYTES # (AUTO) 2.8 K/uL (2.5-16.5); LYMPHOCYTES % (AUTO) 31.7 % (20.5-51.1); MEAN CORPUSCULAR HEMOGLOBIN 30 pg (27-31); MEAN CORPUSCULAR HGB CONC 34 g/dL (33-37); MEAN CORPUSCULAR VOLUME 88.4 fL (80-94); MONOCYTES # (AUTO) 0.4 K/uL (0.8-1.0); MONOCYTES % (AUTO) 4.7 % (1.7-9.3); NEUTROPHILS # (AUTO) 4.6 K/uL (1.8-7.7); NEUTROPHILS % (AUTO) 51.6 % (42.2-75.2); PLATELET COUNT (AUTO) 255 K/uL (140-450); RED BLOOD CELL COUNT(AUTO) 4.05 MIL/uL (4.20-5.40); RED CELL DISTRIBUTION WIDTH 13.5 % (11.6-13.7); WHITE BLOOD COUNT (AUTO) 8.9 K/uL (4.8-10.8)
[2019-04-12 17:10] LABS: ANION GAP 12.5 (8-16); CARBON DIOXIDE 26.7 mmol/L (21-32); CREATININE 0.8 mg/dL (0.6-1.3); POTASSIUM 4.2 mmol/L (3.5-5.1)
[2019-04-12] MEDS ORDERED: KETOROLAC 30 MG/ML VIAL IM ONE (17:15)
[2019-04-12 17:16] LABS: ALBUMIN 3.4 g/dL (3.4-5.0); TOTAL BILIRUBIN 0.2 mg/dL (0.0-1.0)
[2019-04-12] MEDS ORDERED: NACL 0.9% 500 ML IV ONE (18:10)
[2019-04-12] MEDS ORDERED: PROCHLORPERAZINE 10 MG/2 ML VIAL IVP ONE (18:10)
[2019-04-12] MEDS ORDERED: HYDROcodone/APAP 5/325 MG 1 TAB TAB PO ONE (18:10)
--- NOTE | 2019-04-12 18:32 | NUR ---
PRIOR TO MEDICATION, PT ADMITS HER WILL BE PICKING HER AND CHILDREN UP. PT WAS NOTIFIED PRIOR TO MEDICATION SHE SHOULD NOT DRIVE 2 TO SIDE EFFECTS. PT ADDS FRONTAL LOBE THROBBING HEADACHE X 2 DAYS WITH MILD NAUSEA---DENIES RECENT INJURY DENIES DRUG OR ETOH USE.---WILL CONTINUE TO OBSERVE FOR PAIN CONTROL
[2019-04-12 18:54] VITALS: BP 106/60
--- NOTE | 2019-04-12 18:55 | NUR ---
Patient discharged with v/s stable. Written and verbal after care instructions given and explained. Patient alert, oriented and verbalized understanding of instructions. Ambulatory with steady gait. All questions addressed prior to discharge. ID band removed. Patient advised to follow up with PMD. Rx of ZOFRAN AND ACETAMENOPHEN given. Patient educated on indication of medication including possible reaction and side effects. Opportunity to ask questions provided and answered.
== END 2019-04-12 18:55 | disposition home or self-care (01) ==
LOC: MED 15:23
DX: R51 Headache (principal); K29.70 Gastritis, unspecified, without bleeding; Z79.2 Long term (current) use of antibiotics
CPT/HCPCS: 36415; 80053; 81002; 81025; 82150; 83690; 85025; 96361; 96372; 96374; 99283; J0780; J1885; J7030; Q0162

== ENCOUNTER 2019-06-22 10:10 | Emergency (ER) | payer MEDICAID ==
[~2019-06-22] VITALS: Ht 157.5 cm; Wt 71.2 kg
[2019-06-22 10:23] VITALS: BP 124/75
--- NOTE | 2019-06-22 10:28 | NUR ---
PT AMBULATED TO BED WITH FAMILY
--- NOTE | 2019-06-22 10:42 | NUR ---
38 Y/O F C/O VAGINAL BLEEDING/SPOTTING FOR 1 WEEK. POSSITIVE HCG TEST TODAY, PATIENT STATES SHE IS 8 WEEKS , SHE HAS NOT BEEN TO AN OBGYN YET. PATIENT IS A2. PATIENT STATES SHE HAD LOWER BACK PAIN OFF AND ON OVER THE 1 WEEK, SHE DENIED PAIN TODAY IN THE ED. HX: NICKOLAS
--- NOTE | 2019-06-22 10:50 | NUR ---
MD EVALUATING PATIENT AT BEDSIDE.
--- NOTE | 2019-06-22 10:58 | NUR ---
Dr. Moore is evaluating the patient at bedside.
--- NOTE | 2019-06-22 11:09 | NUR ---
LAB AT BEDSIDE, DRAWING PATIENT LABS
--- NOTE | 2019-06-22 11:16 | NUR ---
PATIENT TO ULTRASOUND
--- NOTE | 2019-06-22 11:31 | NUR ---
REPORT GIVEN TO ALISA ARRIAGA
[2019-06-22 11:37] LABS: BASOPHILS % (AUTO) 0.5 % (0.0-2.0); EOSINOPHILS # (AUTO) 0.2 K/uL (0-0.4); EOSINOPHILS % (AUTO) 4.7 % (0.0-4.0); HEMATOCRIT 40.8 % (36-48); HEMOGLOBIN 13.4 g/dL (12.0-16.0); LYMPHOCYTES # (AUTO) 1.6 K/uL (2.5-16.5); LYMPHOCYTES % (AUTO) 32.4 % (20.5-51.1); MEAN CORPUSCULAR HEMOGLOBIN 30 pg (27-31); MEAN CORPUSCULAR HGB CONC 33 g/dL (33-37); MEAN CORPUSCULAR VOLUME 89.7 fL (80-94); MONOCYTES # (AUTO) 0.7 K/uL (0.8-1.0); MONOCYTES % (AUTO) 14.3 % (1.7-9.3); NEUTROPHILS # (AUTO) 2.3 K/uL (1.8-7.7); NEUTROPHILS % (AUTO) 48.1 % (42.2-75.2); PLATELET COUNT (AUTO) 237 K/uL (140-450); RED BLOOD CELL COUNT(AUTO) 4.55 MIL/uL (4.20-5.40); RED CELL DISTRIBUTION WIDTH 13.4 % (11.6-13.7); WHITE BLOOD COUNT (AUTO) 4.8 K/uL (4.8-10.8)
--- NOTE | 2019-06-22 12:30 | NUR ---
ABO/RH=TYPE A POSITIVE, RECEIVED REPORT FROM JOY. NOTIFIED DR. SILVA.
[2019-06-22 13:44] VITALS: BP 108/67
--- NOTE | 2019-06-22 13:44 | NUR ---
Patient discharged with v/s stable. Written and verbal after care instructions given and explained. Patient alert, oriented and verbalized understanding of instructions. Ambulatory with steady gait. All questions addressed prior to discharge. ID band removed. Patient advised to follow up with PMD. Rx of [employer] M[employer] & METAMUCIL given. Patient educated on indication of medication including possible reaction and side effects. Opportunity to ask questions provided and answered.
== END 2019-06-22 13:44 | disposition home or self-care (01) ==
LOC: MED 10:10
DX: O20.0 Threatened abortion (principal); Z3A.01 Less than 8 weeks gestation of pregnancy
CPT/HCPCS: 36415; 76817; 84702; 85025; 86900; 86901; 99284; Q0092

== ENCOUNTER 2019-06-24 12:30 | Emergency (ER) | payer MEDICAID ==
[~2019-06-24] VITALS: Ht 157.5 cm; Wt 67.1 kg
--- NOTE | 2019-06-24 12:39 | NUR ---
pt taken to er bed 09
[2019-06-24 12:41] VITALS: BP 123/74
--- NOTE | 2019-06-24 12:50 | NUR ---
BIB FAMILY. REPEAT HCG LEVEL, SEEN IN ED 06/22. TOLD TO RETURN IN 48 HRS TO ENSURE HCG IS RISING. DENIES VAGINAL BLEEDING. DENIES N/V/D; SKIN IS PINK/WARM/DRY; AAOX4 WITH EVEN AND STEADY GAIT; PATIENT STATES PAIN OF 0/10 AT THIS TIME. PATIENT POSITIONED FOR COMFORT; HOB ELEVATED; BEDRAILS UP X2; BED DOWN. ER MD MADE AWARE OF PT STATUS.
[2019-06-24 15:28] VITALS: BP 106/61
== END 2019-06-24 15:28 | disposition home or self-care (01) ==
LOC: MED 12:30
DX: Z32.01 Encounter for pregnancy test, result positive (principal); Z79.899 Other long term (current) drug therapy; O09.521 Supervision of elderly multigravida, first trimester; Z3A.01 Less than 8 weeks gestation of pregnancy
CPT/HCPCS: 36415; 81025; 84702; 99283

== ENCOUNTER 2019-09-13 16:33 | Emergency (ER) | payer MEDICAID ==
[~2019-09-13] VITALS: Ht 157.5 cm; Wt 72.6 kg
[2019-09-13 16:41] VITALS: BP 106/65
--- NOTE | 2019-09-13 17:27 | NUR ---
PT AMBULATED TO BED 07 WITH STEADY GAIT.
--- NOTE | 2019-09-13 17:31 | NUR ---
38 Y/O FEMALE 18 WKS C/O LOWER BACK PAIN AND BILATERAL LEG PAIN WITH SWELLING. PT STATES INCREASED PAIN AND SWELLING IN LT LOWER EXTREMITY. 8/10 ACHING PAIN AT REST AND 10/10 WITH AMBULATION. DENIES N/V/D. STATES INCREASED FREQUENCY WITH URINATION. DENIES DYSURIA. RR EVEN AND UNLABORED. POSITIONED FOR COMFORT. VSS. MEDHX: DENIES ALLERGIES: NKA
--- NOTE | 2019-09-13 17:48 | NUR ---
ULTRASOUND AT BEDSIDE
--- NOTE | 2019-09-13 18:51 | NUR ---
PT LAYING IN BED POSITIONED FOR COMFORT. X2 SIDE RAILS RAISED. BED LOCKED AND IN LOW POSITION. VSS. WILL CONTINUE TO MONITOR.
[2019-09-13 19:06] VITALS: BP 110/70
== END 2019-09-13 19:07 | disposition home or self-care (01) ==
LOC: MED 16:33
DX: O23.42 Unspecified infection of urinary tract in pregnancy, second trimester (principal); O22.02 Varicose veins of lower extremity in pregnancy, second trimester; Z3A.18 18 weeks gestation of pregnancy; Z79.899 Other long term (current) drug therapy
CPT/HCPCS: 81002; 81025; 93970; 99284; Q0092

== ENCOUNTER 2019-11-21 20:32 | Observation (INO) | payer MEDICAID ==
[~2019-11-21] VITALS: Ht 157.5 cm; Wt 78.5 kg
[2019-11-21] MEDS ORDERED: LACTATED RINGERS 1,000 ML IV SCH (20:38)
[2019-11-21 22:17] VITALS: BP 113/67
== END 2019-11-21 21:55 | disposition home or self-care (01) ==
LOC: MLD 20:32
PROVIDERS: ADMIT Obstetrics & Gynecology; ATTEND Obstetrics & Gynecology
DX: O36.8130 Decreased fetal movements, third trimester, not applicable or unspecified (principal); O32.2XX0 Maternal care for transverse and oblique lie, not applicable or unspecified; O09.523 Supervision of elderly multigravida, third trimester; Z3A.28 28 weeks gestation of pregnancy
CPT/HCPCS: 76805; G0378; Q0092

== ENCOUNTER 2019-11-24 21:00 | Observation (INO) | payer MEDICAID ==
[~2019-11-24] VITALS: Ht 162.6 cm; Wt 78.5 kg
[2019-11-24] MEDS ORDERED: PREN-380 PO (21:13)
[2019-11-24 21:17] VITALS: BP 112/63
[2019-11-24 22:34] LABS: BASOPHILS % (AUTO) 0.2 % (0.0-2.0); EOSINOPHILS # (AUTO) 0.3 K/uL (0-0.4); EOSINOPHILS % (AUTO) 2.7 % (0.0-4.0); HEMATOCRIT 27.9 % (36-48); HEMOGLOBIN 9.3 g/dL (12.0-16.0); LYMPHOCYTES # (AUTO) 2.6 K/uL (2.5-16.5); LYMPHOCYTES % (AUTO) 25.3 % (20.5-51.1); MEAN CORPUSCULAR HEMOGLOBIN 29 pg (27-31); MEAN CORPUSCULAR HGB CONC 33 g/dL (33-37); MONOCYTES # (AUTO) 0.6 K/uL (0.8-1.0); MONOCYTES % (AUTO) 5.4 % (1.7-9.3); NEUTROPHILS # (AUTO) 6.9 K/uL (1.8-7.7); NEUTROPHILS % (AUTO) 66.4 % (42.2-75.2); PLATELET COUNT (AUTO) 297 K/uL (140-450); RED BLOOD CELL COUNT(AUTO) 3.21 MIL/uL (4.20-5.40); RED CELL DISTRIBUTION WIDTH 14.1 % (11.6-13.7); WHITE BLOOD COUNT (AUTO) 10.3 K/uL (4.8-10.8)
[2019-11-24 22:35] LABS: APPEARANCE,URINE CLEAR (CLEAR); BILIRUBIN,URINE NEGATIVE (NEGATIVE); BLOOD, URINE NEGATIVE (NEGATIVE); COLOR,URINE YELLOW (YELLOW); LEUKOCYTE ESTERASE ,URINE TRACE (NEGATIVE); NITRITE, URINE NEGATIVE (NEGATIVE); PH,URINE 6.5 (5.0-9.0); UGLUCOSE NEGATIVE (NEGATIVE)
[2019-11-24 22:54] LABS: ALBUMIN 2.4 g/dL (3.4-5.0); ANION GAP 14.5 (8-16); CARBON DIOXIDE 22.9 mmol/L (21-32); CREATININE 0.6 mg/dL (0.6-1.3); POTASSIUM 3.4 mmol/L (3.5-5.1); TOTAL BILIRUBIN 0.2 mg/dL (0.0-1.0)
[2019-11-24 22:57] LABS: RBC,URINE NONE SEEN /HPF (0-5); WBC,URINE 0-5 /HPF (0-5)
[2019-11-24] MEDS ORDERED: imodium (23:32)
== END 2019-11-24 23:50 | disposition home or self-care (01) ==
LOC: MLD 21:00
PROVIDERS: ADMIT Obstetrics & Gynecology; ATTEND Obstetrics & Gynecology
DX: O26.893 Other specified pregnancy related conditions, third trimester (principal); R10.9 Unspecified abdominal pain; R19.7 Diarrhea, unspecified; O09.523 Supervision of elderly multigravida, third trimester; Z3A.28 28 weeks gestation of pregnancy
CPT/HCPCS: 36415; 80053; 81001; 85025; G0378

== ENCOUNTER 2020-01-02 18:37 | Observation (INO) | payer MEDICAID ==
[~2020-01-02] VITALS: Ht 162.6 cm; Wt 81.6 kg
[~2020-01-02 18:37] MED LIST changes: -CEPH-1019 PO; -LACT10CA1 PO; +PREN-380 PO; +imodium
[2020-01-02] MEDS ORDERED: BETAMETH ACET/BETAMETH NA PH 30 MG/5 ML VIAL IM ONE (20:30)
[2020-01-02] MEDS: LACTATED RINGERS 1,000 ML IV SCH (20:53)
[2020-01-02] MEDS ORDERED: ALUMINUM HYD/MAG/SIMETHICONE 30 ML UDC PO PRN (21:15)
[2020-01-02 21:58] LABS: BASOPHILS % (AUTO) 0.4 % (0.0-2.0); EOSINOPHILS # (AUTO) 0.3 K/uL (0-0.4); EOSINOPHILS % (AUTO) 3.4 % (0.0-4.0); HEMATOCRIT 27.6 % (36-48); HEMOGLOBIN 9.2 g/dL (12.0-16.0); LYMPHOCYTES # (AUTO) 2.4 K/uL (2.5-16.5); LYMPHOCYTES % (AUTO) 25.8 % (20.5-51.1); MEAN CORPUSCULAR HEMOGLOBIN 28 pg (27-31); MEAN CORPUSCULAR HGB CONC 33 g/dL (33-37); MEAN CORPUSCULAR VOLUME 83.8 fL (80-94); MONOCYTES # (AUTO) 0.4 K/uL (0.8-1.0); MONOCYTES % (AUTO) 4.6 % (1.7-9.3); NEUTROPHILS # (AUTO) 6.1 K/uL (1.8-7.7); NEUTROPHILS % (AUTO) 65.8 % (42.2-75.2); PLATELET COUNT (AUTO) 293 K/uL (140-450); RED CELL DISTRIBUTION WIDTH 14.8 % (11.6-13.7); WHITE BLOOD COUNT (AUTO) 9.3 K/uL (4.8-10.8)
[2020-01-02] MEDS ORDERED: FAMOTIDINE 20 MG/2 ML VIAL ONE (22:03)
[2020-01-02 22:21] LABS: ALBUMIN 2.3 g/dL (3.4-5.0); ANION GAP 13.1 (8-16); CARBON DIOXIDE 24.6 mmol/L (21-32); CREATININE 0.7 mg/dL (0.6-1.3); POTASSIUM 3.7 mmol/L (3.5-5.1); TOTAL BILIRUBIN 0.3 mg/dL (0.0-1.0)
[2020-01-02 22:22] LABS: APPEARANCE,URINE SL CLOUDY (CLEAR); BILIRUBIN,URINE NEGATIVE (NEGATIVE); BLOOD, URINE NEGATIVE (NEGATIVE); COLOR,URINE YELLOW (YELLOW); LEUKOCYTE ESTERASE ,URINE 1+ (NEGATIVE); NITRITE, URINE NEGATIVE (NEGATIVE); PH,URINE 6.5 (5.0-9.0); UGLUCOSE NEGATIVE (NEGATIVE)
[2020-01-02 22:57] LABS: RBC,URINE 0-5 /HPF (0-5)
[2020-01-02 23:15] VITALS: BP 110/57
[2020-01-03] MEDS: NACL 0.9% 1,000 ML IV SCH ×2 (01:14→09:15)
[2020-01-03] MEDS ORDERED: cefTRIAXone 1,000 MG VIAL ONE (01:17)
[2020-01-03] MEDS: FAMOTIDINE 20 MG/2 ML VIAL IV SCH ×2 (09:14→21:23)
--- NOTE | 2020-01-03 10:40 | NUR ---
PATIENT HAS BEEN SCREENED AND CATEGORIZED LOW NUTRITION RISK. PATIENT WILL BE SEEN WITHIN 7 DAYS OF ADMISSION. 01/09/[address]
[2020-01-03] MEDS: LACTATED RINGERS 1,000 ML IV SCH (18:23)
[2020-01-03] MEDS ORDERED: BETAMETH ACET/BETAMETH NA PH 30 MG/5 ML VIAL IM ONE ×2 (21:30→23:10)
== END 2020-01-03 21:55 | disposition home or self-care (01) ==
LOC: MLD 18:37
PROVIDERS: ADMIT Obstetrics & Gynecology; ATTEND Obstetrics & Gynecology
DX: O62.9 Abnormality of forces of labor, unspecified (principal); O21.2 Late vomiting of pregnancy; O26.893 Other specified pregnancy related conditions, third trimester; R12 Heartburn; O09.523 Supervision of elderly multigravida, third trimester; O40.3XX0 Polyhydramnios, third trimester, not applicable or unspecified; O23.43 Unspecified infection of urinary tract in pregnancy, third trimester; Z3A.34 34 weeks gestation of pregnancy
CPT/HCPCS: 36415; 76805; 76817; 80053; 81001; 85025; 86886; 86900; 86901; 87086; 96361; 96365; 96372; 96375; 96376; G0378; J0696; J0702; J3490; J7120; Q0092; J7060

== ENCOUNTER 2020-01-18 16:35 | Observation (INO) | payer MEDICAID ==
[~2020-01-18] VITALS: Ht 157.5 cm; Wt 81.6 kg
[~2020-01-18 16:35] MED LIST changes: -imodium
[2020-01-18 17:03] VITALS: BP 130/57
[2020-01-18] MEDS ORDERED: HYDROCORTISONE 2.5% CRM 30 GM TUBE TP SCH (17:20)
[2020-01-18] MEDS ORDERED: MORPHINE SULFATE 10 MG/ML VIAL IM ONE (19:00)
[2020-01-18] MEDS ORDERED: PROMETHAZINE 25 MG/ML VIAL IM PRN (19:00)
[2020-01-18] MEDS ORDERED: PROMETHAZINE 25 MG/ML VIAL ONE (19:08)
[2020-01-18] MEDS ORDERED: MORPHINE SULFATE 10 MG/ML VIAL ONE (19:08)
[2020-01-18 19:31] VITALS: BP 117/64
== END 2020-01-18 20:24 | disposition home or self-care (01) ==
LOC: MLD 16:35
PROVIDERS: ADMIT Obstetrics & Gynecology; ATTEND Obstetrics & Gynecology
DX: O22.43 Hemorrhoids in pregnancy, third trimester (principal); O40.3XX0 Polyhydramnios, third trimester, not applicable or unspecified; O09.523 Supervision of elderly multigravida, third trimester; O99.613 Diseases of the digestive system complicating pregnancy, third trimester; K59.00 Constipation, unspecified; Z3A.36 36 weeks gestation of pregnancy
CPT/HCPCS: G0378; J2270; J2550

== ENCOUNTER 2020-01-27 13:54 | Inpatient (IN) | payer MEDICAID ==
[~2020-01-27] VITALS: Ht 157.5 cm; Wt 81.6 kg
[2020-01-27] MEDS ORDERED: LACTATED RINGERS 1,000 ML IV SCH (15:36)
[2020-01-27 16:22] LABS: BASOPHILS % (AUTO) 0.5 % (0.0-2.0); EOSINOPHILS # (AUTO) 0.8 K/uL (0-0.4); EOSINOPHILS % (AUTO) 8.6 % (0.0-4.0); HEMOGLOBIN 9.1 g/dL (12.0-16.0); LYMPHOCYTES # (AUTO) 2.2 K/uL (2.5-16.5); LYMPHOCYTES % (AUTO) 25.4 % (20.5-51.1); MEAN CORPUSCULAR HEMOGLOBIN 27 pg (27-31); MEAN CORPUSCULAR HGB CONC 32 g/dL (33-37); MEAN CORPUSCULAR VOLUME 82.3 fL (80-94); MONOCYTES # (AUTO) 0.4 K/uL (0.8-1.0); NEUTROPHILS # (AUTO) 5.4 K/uL (1.8-7.7); NEUTROPHILS % (AUTO) 60.5 % (42.2-75.2); PLATELET COUNT (AUTO) 278 K/uL (140-450); RED CELL DISTRIBUTION WIDTH 15.9 % (11.6-13.7); WHITE BLOOD COUNT (AUTO) 8.8 K/uL (4.8-10.8)
[2020-01-27 16:32] LABS: APPEARANCE,URINE CLOUDY (CLEAR); BILIRUBIN,URINE NEGATIVE (NEGATIVE); BLOOD, URINE NEGATIVE (NEGATIVE); COLOR,URINE DARK YELLOW (YELLOW); LEUKOCYTE ESTERASE ,URINE NEGATIVE (NEGATIVE); NITRITE, URINE NEGATIVE (NEGATIVE); UGLUCOSE NEGATIVE (NEGATIVE)
[2020-01-27 22:02] LABS: ALBUMIN 2.2 g/dL (3.4-5.0); CARBON DIOXIDE 21.9 mmol/L (21-32); CREATININE 0.7 mg/dL (0.6-1.3); POTASSIUM 3.9 mmol/L (3.5-5.1); TOTAL BILIRUBIN 0.2 mg/dL (0.0-1.0)
== END 2020-01-27 17:40 | disposition home or self-care (01) | DRG 560 ==
LOC: MLD 13:54 → OBSVTOIN 15:36
PROVIDERS: ADMIT Obstetrics & Gynecology; ATTEND Obstetrics & Gynecology
DX: O22.43 Hemorrhoids in pregnancy, third trimester (principal); O99.013 Anemia complicating pregnancy, third trimester; D64.9 Anemia, unspecified; Z3A.37 37 weeks gestation of pregnancy; Z37.0 Single live birth
CPT/HCPCS: G0378 ×2; 36415; 59025; 76815; 80053; 81003; 85025; 86592; 86886; 86900; 86901; 87653-90; J0690; J7060; J7120; Q0092

== ENCOUNTER 2020-01-29 19:40 | Observation (INO) | payer MEDICAID ==
[~2020-01-29] VITALS: Ht 157.5 cm; Wt 81.6 kg
[2020-01-29 19:55] VITALS: BP 120/73
[2020-01-29] MEDS ORDERED: ONDANSETRON 4 MG/2 ML VIAL IVP PRN (20:30)
[2020-01-29] MEDS ORDERED: LACTATED RINGERS 1,000 ML IV SCH (20:30)
[2020-01-29] MEDS ORDERED: MORPHINE SULFATE 4 MG/ML SYR IVP PRN (20:30)
[2020-01-29 21:10] LABS: APPEARANCE,URINE HAZY (CLEAR); BILIRUBIN,URINE NEGATIVE (NEGATIVE); BLOOD, URINE NEGATIVE (NEGATIVE); COLOR,URINE YELLOW (YELLOW); LEUKOCYTE ESTERASE ,URINE NEGATIVE (NEGATIVE); NITRITE, URINE NEGATIVE (NEGATIVE); UGLUCOSE NEGATIVE (NEGATIVE)
[2020-01-29 21:23] LABS: BASOPHILS % (AUTO) 0.4 % (0.0-2.0); EOSINOPHILS # (AUTO) 0.5 K/uL (0-0.4); HEMATOCRIT 27.1 % (36-48); HEMOGLOBIN 8.8 g/dL (12.0-16.0); LYMPHOCYTES # (AUTO) 2.6 K/uL (2.5-16.5); LYMPHOCYTES % (AUTO) 26.5 % (20.5-51.1); MEAN CORPUSCULAR HEMOGLOBIN 27 pg (27-31); MEAN CORPUSCULAR HGB CONC 32 g/dL (33-37); MONOCYTES # (AUTO) 0.5 K/uL (0.8-1.0); MONOCYTES % (AUTO) 4.8 % (1.7-9.3); NEUTROPHILS # (AUTO) 6.2 K/uL (1.8-7.7); NEUTROPHILS % (AUTO) 63.3 % (42.2-75.2); PLATELET COUNT (AUTO) 304 K/uL (140-450); RED BLOOD CELL COUNT(AUTO) 3.31 MIL/uL (4.20-5.40); RED CELL DISTRIBUTION WIDTH 15.6 % (11.6-13.7); WHITE BLOOD COUNT (AUTO) 9.8 K/uL (4.8-10.8)
== END 2020-01-29 23:30 | disposition home or self-care (01) ==
LOC: MLD 19:40
PROVIDERS: ADMIT Obstetrics & Gynecology; ATTEND Obstetrics & Gynecology
DX: O62.9 Abnormality of forces of labor, unspecified (principal); O09.523 Supervision of elderly multigravida, third trimester; Z87.19 Personal history of other diseases of the digestive system; Z3A.38 38 weeks gestation of pregnancy
CPT/HCPCS: 36415; 76819; 81003; 85025; 86886; 86900; 86901; 87653; 96374; 96375; G0378; J2270; J2405; J7120; Q0092

== ENCOUNTER 2020-01-30 11:52 | Inpatient (IN) | payer MEDICAID, SELFPAY ==
[~2020-01-30] VITALS: Ht 162.6 cm; Wt 81.6 kg
[~2020-01-30 11:52] MED LIST changes: -PREN-380 PO; +diphenhydrAMINE 50 MG/ML VIAL IVP PRN
[2020-01-30 13:10] VITALS: BP 117/74
[2020-01-30] MEDS: LACTATED RINGERS 1,000 ML IV SCH ×3 (14:27→19:10)
[2020-01-30 14:29] LABS: BASOPHILS % (AUTO) 0.6 % (0.0-2.0); EOSINOPHILS # (AUTO) 0.4 K/uL (0-0.4); EOSINOPHILS % (AUTO) 5.1 % (0.0-4.0); HEMATOCRIT 27.5 % (36-48); HEMOGLOBIN 8.9 g/dL (12.0-16.0); LYMPHOCYTES # (AUTO) 2.1 K/uL (2.5-16.5); LYMPHOCYTES % (AUTO) 24.8 % (20.5-51.1); MEAN CORPUSCULAR HEMOGLOBIN 27 pg (27-31); MEAN CORPUSCULAR HGB CONC 32 g/dL (33-37); MEAN CORPUSCULAR VOLUME 81.9 fL (80-94); MONOCYTES # (AUTO) 0.5 K/uL (0.8-1.0); MONOCYTES % (AUTO) 5.5 % (1.7-9.3); NEUTROPHILS # (AUTO) 5.5 K/uL (1.8-7.7); PLATELET COUNT (AUTO) 290 K/uL (140-450); RED BLOOD CELL COUNT(AUTO) 3.36 MIL/uL (4.20-5.40); RED CELL DISTRIBUTION WIDTH 15.9 % (11.6-13.7); WHITE BLOOD COUNT (AUTO) 8.5 K/uL (4.8-10.8)
[2020-01-30 14:31] LABS: BILIRUBIN,URINE NEGATIVE (NEGATIVE); BLOOD, URINE 1+ (NEGATIVE); COLOR,URINE YELLOW (YELLOW); LEUKOCYTE ESTERASE ,URINE TRACE (NEGATIVE); NITRITE, URINE NEGATIVE (NEGATIVE); PH,URINE 5.5 (5.0-9.0); UGLUCOSE NEGATIVE (NEGATIVE)
[2020-01-30 14:34] LABS: APPEARANCE,URINE HAZY (CLEAR)
[2020-01-30 14:42] LABS: ALBUMIN 2.2 g/dL (3.4-5.0); ANION GAP 16.1 (8-16); CARBON DIOXIDE 21.8 mmol/L (21-32); CREATININE 0.7 mg/dL (0.6-1.3); POTASSIUM 3.9 mmol/L (3.5-5.1); TOTAL BILIRUBIN 0.4 mg/dL (0.0-1.0)
[2020-01-30 16:08] LABS: RBC,URINE 0-5 /HPF (0-5); WBC,URINE 0-5 /HPF (0-5)
[2020-01-30] MEDS ORDERED: MORPHINE PRES FREE 10 MG/10 ML AMP IV ONE (19:44)
[2020-01-30] MEDS ORDERED: ONDANSETRON 4 MG/2 ML VIAL ONE (19:55)
[2020-01-30] MEDS ORDERED: ePHEDrine 50 MG/ML VIAL ONE (19:55)
[2020-01-30] MEDS ORDERED: PROPOFOL 200 MG/20 ML VIAL IV ONE (19:55)
[2020-01-30] MEDS ORDERED: DEXAMETHASONE 4 MG/ML VIAL ONE (19:55)
[2020-01-30] MEDS ORDERED: LACTATED RINGERS 1,000 ML IV SCH (21:14)
[2020-01-30] MEDS ORDERED: ONDANSETRON 4 MG/2 ML VIAL IVP PRN (21:15)
[2020-01-30] MEDS ORDERED: HYDROmorphone 1 MG/ML AMP IVP PRN (21:15)
[2020-01-30] MEDS ORDERED: OXYTOCIN 10 UNITS/ML VIAL ONE (21:20)
[2020-01-30] MEDS: HYDROmorphone PFS 2 MG/ML SYR ONE ×2 (21:23→21:33)
[2020-01-30] MEDS ORDERED: OXYTOCIN 20 UNITS/LR PREMIX 1,000 ML IV SCH (23:51)
[2020-01-30] MEDS ORDERED: MEASLES, MUMPS, AND RUBELLA 1 VIAL SQVAC PRN (23:55)
[2020-01-31] MEDS ORDERED: KETOROLAC 30 MG/ML VIAL IVP SCH
[2020-01-31] MEDS: diphenhydrAMINE 50 MG/ML VIAL IVP PRN ×2 (03:17→06:06)
[2020-01-31] MEDS: KETOROLAC 30 MG/ML VIAL IVP SCH ×4 (06:07→23:54)
[2020-01-31 06:45] LABS: BASOPHILS % (AUTO) 0.2 % (0.0-2.0); HEMATOCRIT 27.2 % (36-48); HEMOGLOBIN 8.6 g/dL (12.0-16.0); LYMPHOCYTES # (AUTO) 1.6 K/uL (2.5-16.5); LYMPHOCYTES % (AUTO) 11.9 % (20.5-51.1); MEAN CORPUSCULAR HEMOGLOBIN 26 pg (27-31); MEAN CORPUSCULAR HGB CONC 32 g/dL (33-37); MEAN CORPUSCULAR VOLUME 82.1 fL (80-94); MONOCYTES # (AUTO) 0.5 K/uL (0.8-1.0); NEUTROPHILS # (AUTO) 10.9 K/uL (1.8-7.7); NEUTROPHILS % (AUTO) 83.9 % (42.2-75.2); PLATELET COUNT (AUTO) 259 K/uL (140-450); RED BLOOD CELL COUNT(AUTO) 3.31 MIL/uL (4.20-5.40); RED CELL DISTRIBUTION WIDTH 15.8 % (11.6-13.7)
[2020-01-31] MEDS ORDERED: diphenhydrAMINE 50 MG/ML VIAL ONE (07:53)
[2020-01-31] MEDS ORDERED: diphenhydrAMINE 50 MG/ML VIAL IVP PRN (08:15)
[2020-01-31] MEDS ORDERED: IBUPROFEN 600 MG TAB PO PRN (08:20)
[2020-01-31] MEDS ORDERED: oxyCODONE/APAP 5/325 MG 1 TAB TAB PO PRN (08:20)
--- NOTE | 2020-01-31 08:26 | NUR ---
PATIENT HAS BEEN SCREENED AND CATEGORIZED LOW NUTRITION RISK. PATIENT WILL BE SEEN WITHIN 7 DAYS OF ADMISSION. 02/06/[address]
[2020-01-31] MEDS ORDERED: OXYTOCIN 20 UNITS in LACTATED RINGERS 1,000 ML IM SCH (08:30)
[2020-01-31] MEDS ORDERED: BISACODYL 10 MG SUPP RC SCH (09:00)
[2020-01-31] MEDS: oxyCODONE/APAP 5/325 MG 1 TAB TAB PO PRN (22:48)
[2020-02-01] MEDS: KETOROLAC 30 MG/ML VIAL IVP SCH (12:33)
[2020-02-01] MEDS: oxyCODONE/APAP 5/325 MG 1 TAB TAB PO PRN (17:00)
[2020-02-01] MEDS ORDERED: CAMERA MC ONE (22:19)
[2020-02-02] MEDS ORDERED: SODIUM PHOSPHATE 118 ML ENEM RC PRN (11:15)
== END 2020-02-02 14:30 | disposition home or self-care (01) | DRG 540 ==
LOC: MLD 11:52 → OBSVTOIN 13:18 → EEVIPCON 13:18 → MFCC 21:57
PROVIDERS: ADMIT Obstetrics & Gynecology; ATTEND Obstetrics & Gynecology
PROC: 3E0234Z Introduction of Serum, Toxoid and Vaccine into Muscle, Percutaneous Approach (ICD-10-PCS; 2020-01-30)
PROC: 3E0134Z Introduction of Serum, Toxoid and Vaccine into Subcutaneous Tissue, Percutaneous Approach (ICD-10-PCS; 2020-01-30)
PROC: 10D00Z1 Extraction of Products of Conception, Low, Open Approach (ICD-10-PCS; principal; 2020-01-30 19:00)
DX: O76 Abnormality in fetal heart rate and rhythm complicating labor and delivery (principal); O45.93 Premature separation of placenta, unspecified, third trimester; Z20.828 Contact with and (suspected) exposure to other viral communicable diseases; Z3A.38 38 weeks gestation of pregnancy; Z37.0 Single live birth; Z23 Encounter for immunization
CPT/HCPCS: 36415; 51702; 80053; 81001; 85025; 86592; 86886; 86900; 86901; 90707; 90715; G0378; J0690; J1100; J1170; J1200; J1885; J2270; J2405; J2590; J2704; J7060; J7120; U0003-CS

== ENCOUNTER 2020-11-05 18:49 | Emergency (ER) | payer MEDICAID, SELFPAY ==
[~2020-11-05] VITALS: Ht 157.5 cm; Wt 73.9 kg
[2020-11-05 18:57] VITALS: BP 174/93
[2020-11-05] MEDS ORDERED: KETOROLAC 60 MG/2 ML VIAL IM ONE (19:05)
--- NOTE | 2020-11-05 19:05 | NUR ---
PT AMBULATED TO BED #11
--- NOTE | 2020-11-05 19:10 | NUR ---
40 Y/O FEMALE C/O CHEST PAIN, GENERALIZED WEAKNESS, AND NUMBNESS TO LEFT ARM THAT RADIATES TO LEFT SIDE OF FACE X3 DAYS. PT RATES PAIN 8/10 AND DESCRIBES CHEST PAIN PRESSURE/TIGHTNESS. PT DENIES ANY N/V. PT HOOKED TO MONITORS, VS STABLE. WILL CONTINUE TO MONITOR. PMH:DENIES NKA
--- NOTE | 2020-11-05 19:18 | NUR ---
EKG PERFORMED AT BEDSIDE. EKG READS SINUS RHYTHM @ 69
--- NOTE | 2020-11-05 19:45 | NUR ---
Dr. Bonilla examining patient.
[2020-11-05] MEDS ORDERED: IBUP-2213 PO (19:55)
[2020-11-05] MEDS ORDERED: ONDA8TAB87 PO (19:55)
--- NOTE | 2020-11-05 20:05 | NUR ---
Patient discharged with v/s stable. Written and verbal after care instructions given and explained. Patient alert, oriented and verbalized understanding of instructions. Ambulatory with steady gait. All questions addressed prior to discharge. ID band removed. Patient advised to follow up with PMD. Rx of MOTRIN, ZOFRAN given. Patient educated on indication of medication including possible reaction and side effects. Opportunity to ask questions provided and answered.
== END 2020-11-05 20:05 | disposition home or self-care (01) ==
LOC: MED 18:49
DX: R07.89 Other chest pain (principal); R11.0 Nausea; Z90.49 Acquired absence of other specified parts of digestive tract
CPT/HCPCS: 93005; 96372; 99283; J1885

== ENCOUNTER 2021-01-09 02:30 | Emergency (ER) | payer MEDICAID ==
[~2021-01-09] VITALS: Ht 157.5 cm; Wt 72.6 kg
[~2021-01-09 02:30] MED LIST changes: +IBUP-2213 PO; +ONDA8TAB87 PO; -diphenhydrAMINE 50 MG/ML VIAL IVP PRN
[2021-01-09 02:36] VITALS: BP 113/77
--- NOTE | 2021-01-09 02:46 | NUR ---
40/F C/O LOWER BACK PAIN THAT RADIATES TO EPIGASTRIC REGION X 3 DAYS. 10/10 PAIN AND DESCRIBES IT BURNING AND PRESSURE. +NUASEA. +DYSURIA. DENIES ANY FEVER, CHILLS, N/V/D. NKDA. PMH: DENIES.
--- NOTE | 2021-01-09 02:49 | NUR ---
DR. SHAW AT BEDSIDE EXAMINING PATIENT
[2021-01-09] MEDS ORDERED: KETOROLAC 30 MG/ML VIAL IM ONE (02:50)
[2021-01-09 02:54] LABS: APPEARANCE,URINE SL CLOUDY (CLEAR); BILIRUBIN,URINE NEGATIVE (NEGATIVE); BLOOD, URINE TRACE-I (NEGATIVE); COLOR,URINE YELLOW (YELLOW); LEUKOCYTE ESTERASE ,URINE TRACE (NEGATIVE); NITRITE, URINE NEGATIVE (NEGATIVE); PH,URINE 6.5 (5.0-9.0); UGLUCOSE NEGATIVE (NEGATIVE)
--- NOTE | 2021-01-09 03:03 | NUR ---
URINE SAMPLE COLLECTED AND SENT TO LAB
[2021-01-09 03:06] LABS: RBC,URINE 0-5 /HPF (0-5)
[2021-01-09] MEDS ORDERED: MORPHINE SULFATE 4 MG/ML SYR IVP ONE (03:55)
[2021-01-09] MEDS ORDERED: ONDANSETRON 4 MG/2 ML VIAL IVP ONE (03:55)
[2021-01-09] MEDS ORDERED: cefTRIAXone 1,000 MG VIAL ONE (04:08)
--- NOTE | 2021-01-09 04:30 | NUR ---
IV ACCESS INSERTED ON RIGHT HAND G24. BLOOD SAMPLE TAKEN AND SENT TO LAB.
--- NOTE | 2021-01-09 05:05 | NUR ---
PT ASLEEP. VISIBLE CHEST RISE AND FALL NOTED. PT NOT IN DISTRESS. SAFETY MEASURES IN PLACE. WILL CONTINUE TO MONITOR.
[2021-01-09 05:20] LABS: ALBUMIN 3.3 g/dL (3.4-5.0); ANION GAP 13.3 (8-16); BASOPHILS % (AUTO) 0.3 % (0.0-2.0); CARBON DIOXIDE 20.3 mmol/L (21-32); CREATININE 0.7 mg/dL (0.6-1.3); EOSINOPHILS # (AUTO) 0.3 K/uL (0-0.4); EOSINOPHILS % (AUTO) 2.6 % (0.0-4.0); HEMATOCRIT 37.7 % (36-48); HEMOGLOBIN 12.4 g/dL (12.0-16.0); LYMPHOCYTES # (AUTO) 0.8 K/uL (2.5-16.5); LYMPHOCYTES % (AUTO) 6.2 % (20.5-51.1); MEAN CORPUSCULAR HEMOGLOBIN 29 pg (27-31); MEAN CORPUSCULAR HGB CONC 33 g/dL (33-37); MONOCYTES # (AUTO) 0.5 K/uL (0.8-1.0); MONOCYTES % (AUTO) 3.8 % (1.7-9.3); NEUTROPHILS # (AUTO) 11.1 K/uL (1.8-7.7); NEUTROPHILS % (AUTO) 87.1 % (42.2-75.2); PLATELET COUNT (AUTO) 260 K/uL (140-450); POTASSIUM 3.6 mmol/L (3.5-5.1); RED BLOOD CELL COUNT(AUTO) 4.29 MIL/uL (4.20-5.40); RED CELL DISTRIBUTION WIDTH 14.3 % (11.6-13.7); TOTAL BILIRUBIN 0.6 mg/dL (0.0-1.0); WHITE BLOOD COUNT (AUTO) 12.8 K/uL (4.8-10.8)
[2021-01-09] MEDS ORDERED: CEPH-588 PO ×2 (05:46→05:55)
[2021-01-09] MEDS ORDERED: ACET-10509 PO ×2 (05:46→05:55)
--- NOTE | 2021-01-09 05:56 | NUR ---
Patient discharged with v/s stable. Written and verbal after care instructions given and explained. Patient alert, oriented and verbalized understanding of instructions. Ambulatory with steady gait. All questions addressed prior to discharge. IV ACCESS AND ID band removed. Patient advised to follow up with PMD. Rx of KEFLEX, TYLENOL given. Patient educated on indication of medication including possible reaction and side effects. Opportunity to ask questions provided and answered.
[2021-01-09 05:57] VITALS: BP 104/61
== END 2021-01-09 05:56 | disposition home or self-care (01) ==
LOC: MED 02:30
DX: N12 Tubulo-interstitial nephritis, not specified as acute or chronic (principal); R30.9 Painful micturition, unspecified
CPT/HCPCS: 36415; 80053; 81001; 81025; 83690; 85025; 87086; 96365; 96372; 96375; 99284; J0696; J1885; J2270; J2405

== ENCOUNTER 2021-01-09 08:06 | Inpatient (IN) | payer MEDICAID, SELFPAY ==
[~2021-01-09] VITALS: Ht 157.5 cm; Wt 76.7 kg
[~2021-01-09 08:06] MED LIST changes: +ACET-10509 PO; +CEPH-588 PO
[2021-01-09 08:45] VITALS: BP 101/71
--- NOTE | 2021-01-09 10:10 | NUR ---
PT AMBULATED TO BED 11
[2021-01-09] MEDS ORDERED: NACL 0.9% 1,000 ML IV ONE (10:40)
[2021-01-09] MEDS ORDERED: KETOROLAC 30 MG/ML VIAL IVP ONE (10:40)
[2021-01-09 11:57] LABS: BASOPHILS % (AUTO) 0.3 % (0.0-2.0); EOSINOPHILS # (AUTO) 0.1 K/uL (0-0.4); EOSINOPHILS % (AUTO) 1.7 % (0.0-4.0); HEMATOCRIT 37.1 % (36-48); HEMOGLOBIN 12.3 g/dL (12.0-16.0); LYMPHOCYTES # (AUTO) 0.9 K/uL (2.5-16.5); LYMPHOCYTES % (AUTO) 10.1 % (20.5-51.1); MEAN CORPUSCULAR HEMOGLOBIN 29 pg (27-31); MEAN CORPUSCULAR HGB CONC 33 g/dL (33-37); MEAN CORPUSCULAR VOLUME 88.1 fL (80-94); MONOCYTES # (AUTO) 0.5 K/uL (0.8-1.0); MONOCYTES % (AUTO) 5.8 % (1.7-9.3); NEUTROPHILS % (AUTO) 82.1 % (42.2-75.2); PLATELET COUNT (AUTO) 234 K/uL (140-450); RED BLOOD CELL COUNT(AUTO) 4.22 MIL/uL (4.20-5.40); RED CELL DISTRIBUTION WIDTH 14.3 % (11.6-13.7); WHITE BLOOD COUNT (AUTO) 8.5 K/uL (4.8-10.8)
--- NOTE | 2021-01-09 11:58 | NUR ---
40/F presents to ED with c/o abdominal pain and uti symptoms. Patient states for two weeks she has been having urinary frequency and burning and began having lower abdominal pain radiating to her lower back. Patient describes it as a 10/10 constant sharp pain, denies taking anything at home for pain. Patient denies nausea, vomiting or diarrhea, states she was seen at urgent care and given antibiotics with no relief.
[2021-01-09 12:21] LABS: ALBUMIN 3.4 g/dL (3.4-5.0); ANION GAP 10.5 (8-16); CREATININE 0.8 mg/dL (0.6-1.3); POTASSIUM 3.5 mmol/L (3.5-5.1); TOTAL BILIRUBIN 0.8 mg/dL (0.0-1.0)
--- NOTE | 2021-01-09 12:24 | NUR ---
Patient taken to CT scan via wheelchair by tech.
[2021-01-09] MEDS ORDERED: KETOROLAC 30 MG/ML VIAL ONE (12:28)
[2021-01-09 13:23] LABS: APPEARANCE,URINE CLEAR (CLEAR); BILIRUBIN,URINE 2+ (NEGATIVE); BLOOD, URINE NEGATIVE (NEGATIVE); COLOR,URINE YELLOW (YELLOW); LEUKOCYTE ESTERASE ,URINE NEGATIVE (NEGATIVE); NITRITE, URINE NEGATIVE (NEGATIVE); UGLUCOSE NEGATIVE (NEGATIVE)
[2021-01-09 13:36] LABS: RBC,URINE 0-5 /HPF (0-5); WBC,URINE 0-5 /HPF (0-5)
[2021-01-09] MEDS ORDERED: ONDANSETRON 4 MG/2 ML VIAL IVP ONE (14:30)
[2021-01-09] MEDS ORDERED: MORPHINE SULFATE 4 MG/ML SYR IVP ONE (14:30)
--- NOTE | 2021-01-09 14:39 | NUR ---
Ultrasound at bedside
[2021-01-09] MEDS ORDERED: ACETAMINOPHEN 325 MG TAB PO PRN (14:40)
[2021-01-09] MEDS ORDERED: MORPHINE SULFATE 2 MG/ML SYR IVP PRN (14:40)
[2021-01-09] MEDS ORDERED: DOCUSATE SODIUM 100 MG GELCAP PO PRN (14:40)
[2021-01-09] MEDS ORDERED: LORazepam 2 MG/ML VIAL IM/IVP PRN (14:40)
[2021-01-09] MEDS ORDERED: HYDROcodone/APAP 5/325 MG 1 TAB TAB PO PRN (14:40)
[2021-01-09] MEDS ORDERED: ONDANSETRON 4 MG/2 ML VIAL IVP PRN (14:40)
[2021-01-09] MEDS ORDERED: ZOLPIDEM 5 MG TAB PO PRN (14:40)
--- NOTE | 2021-01-09 14:43 | NUR ---
covid swab collected and walked down to lab.
--- NOTE | 2021-01-09 15:30 | NUR ---
Patient will be admitted to care of DR YANG. Admited to [facility]. Will go to [id number]. Belongings list completed. Report to ALISA NICOLAS.
[2021-01-09 15:35] LABS: CHOL/HDL RATIO 3.1 (1-4.5); FREE T4 (FREE THYROXINE) 0.93 ng/dL (0.76-1.46); MAGNESIUM 2.1 mg/dL (1.8-2.4); PHOSPHORUS 2.7 mg/dL (2.5-4.9); THYROID STIMULATING HORMONE 1.2 uIU/mL (0.34-3.74)
--- NOTE | 2021-01-09 15:40 | NUR ---
RECEIVED TELEPHONE REPORT FROM ER NURSE DUANE FOR CONTINUITY OF CARE. PATIENT AAOX4, AMBULATORY ON RA. CC WITH NAUSEA, VOMITING, DIARRHEA AND ABD PAIN. IV TO RIGHT UPPER ARM 18G. PER DUANE, PATIENT IS HARD STICK. 1 L OF BOLUS NS GIVEN IN ER. ZOFRAN AND MORPHINE WAS GIVEN IN ER. SKIN INTACT. WILL FOLLOW UP.
[2021-01-09 15:43] LABS: PROTHROMBIN TIME 10.9 secs (10.8-13.4)
[2021-01-09 15:45] VITALS: BP 101/59
--- NOTE | 2021-01-09 15:45 | NUR ---
PATIENT ARRIVED THE UNIT BY [place]. AWAKE. VITAL SIGNS TAKEN, MRSA SWAB COLLECTED. ORIENTED PATIENT TO THE ROOM ENVIRONMENT AND CALL LIGHT. PATIENT COMPLAINT OF GENERAL BODY ACHES, PAIN LEVEL 5/10. PATIENT STATED THAT NO PAIN MED NEEDED AT THIS TIME. INFORMED PATIENT TO CALL NURSE IF NEEDS PAIN MED BEFORE PAIN TURNS REALLY BAD, VERBALIZED UNDERSTANDING. PATIENT KEPT COMFORTABLY. NO ACUTE DISTRESS NOTED, WILL CONTINUE TO MONITOR.
[2021-01-09] MEDS: NACL 0.9% 1,000 ML IV SCH (16:35)
--- NOTE | 2021-01-09 17:09 | NUR ---
FIRST DOSE OF ROCEPHIN GIVEN VIA IVPB, EDUCATION PROVIDED, SAFETY MEASURES IN PLACE, WILL CONTINUE TO MONITOR.
[2021-01-09 18:52] LABS: BARBITURATE, URINE NEGATIVE ng/ml (NEG <=200); BENZODIAZEPINE, URINE NEGATIVE ng/mL (NEG <=200); CANNABINOID, URINE NEGATIVE ng/mL (NEG <=50); COCAINE, URINE NEGATIVE ng/mL (NEG <=300); OPIATE, URINE POSITIVE ng/mL (NEG <=2000); PHENCYCLIDINE SCREEN,URINE NEGATIVE ng/mL (NEG <=25)
--- NOTE | 2021-01-09 19:12 | NUR ---
ENDORSED PATIENT TO GLOBAL ENGINEERING MANAGER RN FOR CONTINUITY OF CARE. PATIENT IN STABLE CONDITION.
--- NOTE | 2021-01-09 19:13 | NUR ---
RECEIVED BEDSIDE REPORT FROM DAY RN ANNIKA. PT AOX4 ON ROOM AIR. NO S/S RESPIRATORY DISTRESS. NO C/O PAIN AT THIS TIME. IV SITE TAMI PATENT INTACT INFUSING IVF PER MD ORDERS. SAFETY MEASURES IN PLACE. CALL LIGHT WITHIN REACH. WILL CONTINUE TO MONITOR
[2021-01-09 20:00] VITALS: BP 93/58
[2021-01-09] MEDS: metroNIDAZOLE 500 MG/NS PREMIX 100 ML IV SCH (20:31)
--- NOTE | 2021-01-09 20:40 | NUR ---
ADMINISTERED SCHEDULED MEDICATION. EDUCATION PROVIDED. PT VERBALIZED UNDERSTANDING. NO DISTRESS NOTED. CALL LIGHT WITHIN REACH. WILL CONTINUE TO MONITOR. CONTACT PRECAUTION IN PLACE
--- NOTE | 2021-01-09 21:58 | NUR ---
PATIENT ASLEEP IN BED. RESPIRATIONS EVEN UNLABORED. NO DISTRESS NOTED. IVF INFUSING WELL. CALL LIGHT WITHIN REACH. WILL CONTINUE TO MONITOR
--- NOTE | 2021-01-10 00:21 | NUR ---
PATIENT ASLEEP IN BED. RESPIRATIONS EVEN UNLABORED. NO DISTRESS NOTED. IVF INFUSING WELL ORDERED. CALL LIGHT WITHIN REACH. WILL CONTINUE TO MONITOR
[2021-01-10] MEDS: NACL 0.9% 1,000 ML IV SCH ×2 (00:40→04:51)
--- NOTE | 2021-01-10 00:58 | NUR ---
PRN NORCO GIVEN FOR C/O 12/03 RIGHT ABD PAIN RADIATES TO RIGHT LOWER BACK. EDUCATION PROVIDED. PT VERBALIZED UNDERSTANDING. CALL LIGHT WITHIN REACH. WILL CONTINUE TO MONITOR
--- NOTE | 2021-01-10 02:38 | NUR ---
PATIENT ASLEEP IN BED. RESPIRATIONS EVEN UNLABORED. NO DISTRESS NOTED. IVF INFUSING WELL ORDERED. CALL LIGHT WITHIN REACH. WILL CONTINUE TO MONITOR
[2021-01-10 04:00] VITALS: BP 99/63
--- NOTE | 2021-01-10 04:35 | NUR ---
C.DIFF SAMPLE COLLECTED AND ROUTED TO LAB
[2021-01-10] MEDS: metroNIDAZOLE 500 MG/NS PREMIX 100 ML IV SCH (04:47)
--- NOTE | 2021-01-10 04:50 | NUR ---
SCHEDULED MEDICATION GIVEN PER MD ORDERS, EDUCATION PROVIDED. NO DISTRESS NOTED. CALL LIGHT WITHIN REACH. WILL CONTINUE TO MONITOR
[2021-01-10 06:39] LABS: BASOPHILS % (AUTO) 0.6 % (0.0-2.0); EOSINOPHILS # (AUTO) 0.4 K/uL (0-0.4); EOSINOPHILS % (AUTO) 9.6 % (0.0-4.0); HEMATOCRIT 32.7 % (36-48); LYMPHOCYTES # (AUTO) 1.3 K/uL (2.5-16.5); LYMPHOCYTES % (AUTO) 29.7 % (20.5-51.1); MEAN CORPUSCULAR HEMOGLOBIN 30 pg (27-31); MEAN CORPUSCULAR HGB CONC 34 g/dL (33-37); MEAN CORPUSCULAR VOLUME 87.8 fL (80-94); MONOCYTES # (AUTO) 0.3 K/uL (0.8-1.0); MONOCYTES % (AUTO) 7.2 % (1.7-9.3); NEUTROPHILS # (AUTO) 2.3 K/uL (1.8-7.7); NEUTROPHILS % (AUTO) 52.9 % (42.2-75.2); PLATELET COUNT (AUTO) 174 K/uL (140-450); RED BLOOD CELL COUNT(AUTO) 3.72 MIL/uL (4.20-5.40); RED CELL DISTRIBUTION WIDTH 14.3 % (11.6-13.7); WHITE BLOOD COUNT (AUTO) 4.4 K/uL (4.8-10.8)
[2021-01-10 06:43] LABS: ALBUMIN 2.7 g/dL (3.4-5.0); CARBON DIOXIDE 21.5 mmol/L (21-32); CREATININE 0.6 mg/dL (0.6-1.3); POTASSIUM 3.5 mmol/L (3.5-5.1); TOTAL BILIRUBIN 0.3 mg/dL (0.0-1.0)
[2021-01-10 07:09] LABS: PHOSPHORUS 2.5 mg/dL (2.5-4.9)
--- NOTE | 2021-01-10 07:20 | NUR ---
ENDORSED PATIENT TO DAY RN FOR CONTINUITY OF CARE. PATIENT IS IN STABLE CONDITION
--- NOTE | 2021-01-10 07:21 | NUR ---
RECEIVED PATIENT FROM NIGHT NURSE. PATIENT IN BED AWAKE AND ALERT. RESP EVEN AND UNLABORED ON ROOM AIR. TAMI 18G INFUSING NS. PLAN OF CARE DISCUSSED, PATIENT VERBALIZED UNDERSTANDING. HOB ELEVATED, SAFETY MEASURES IN PLACE. CONTACT ISOLATION R/O CDIFF OBSERVED. BED IN LOW POSITIONS. CALL LIGHT WITHIN REACH. WILL CONTINUE TO MONITOR.
[2021-01-10 08:00] VITALS: BP 94/63
[2021-01-10 08:08] LABS: HEPATITIS A ANTIBODY IGM Negative (Negative); HEPATITIS B CORE AB TOTAL Negative (Negative); HEPATITIS B SURFACE ANTIBODY Non Reactive (.); HEPATITIS B SURFACE ANTIGEN Negative (Negative)
--- NOTE | 2021-01-10 08:35 | NUR ---
PATIENT HAS BEEN SCREENED AND CATEGORIZED HIGH NUTRITION RISK. PATIENT WILL BE SEEN WITHIN 1-2 DAYS OF ADMISSION. 01/10/21-01/11/21 [facility] CONSULT AND FNS REFERRAL RECEIVED FOR NAUSEA OVER [address]
[2021-01-10] MEDS: LACTOBACILLUS RHAMNOSUS GG 1 EACH CAP PO SCH (09:39)
--- NOTE | 2021-01-10 09:52 | NUR ---
PATIENT ALERT ABLE TO MAKE NEEDS MET. IV RIGHT UPPER ARM 18 G NS 100 ML/HR. PATIENT COMPLAINED OF BACK PAIN. ABLE TO TOLERATE DID NOT REQUEST ANY PAIN MEDICATION. SKIN INTACT WARM TO TOUCH. PATIENT ABLE TO AMBULATE WITH STEADY GATE. PLAN OF CARE DISCUSSED. PATIENT VERBALIZED UNDERSTANDING. WILL CONTINUE TO MONITOR.
--- NOTE | 2021-01-10 10:52 | NUR ---
DC PLANNING 40 YRS OLD FEMALE PATIENT WAS ADMITTED FROM HOME WITH A DX OF UTI, ABDOMINAL PAIN , TRANSAMINITIS,DEHYDRATION. PATIENT HAS NO MEDICAL HISTORY. SURGICAL HX CHOLECYSTECTOMY. CT ABD/PELVIS SHOWED POSSIBLE PARTIAL LEFT OVARIAN CYST RUPTURE. US TRANSVAGINAL SHOWED NO OVARIAN TORSION. CXR NO ACUTE CARDIOPULMONARY DISEASE. RAPID COVID TEST NEGATIVE. ADMINISTERED IVF, AND IV ABX FLAGYL AND PAIN MEDS NORCO. CONSULTED WITH TYPEWRITER OPERATOR AUTOMATIC, GI AND PSYCH FOR ANXIETY. DC PLAN TO GO HOME WHEN STABLE .CM TO FOLLOW
--- NOTE | 2021-01-10 12:32 | NUR ---
PATIENT SITTING UP IN BED AWAKE AND ALERT. NO NOTED DISTRESS AT THIS TIME. CALL LIGHT WITHIN REACH. WILL CONTINUE TO MONITOR.
--- NOTE | 2021-01-10 14:24 | NUR ---
01/10/21 RD INITIAL ASSESSMENT COMPLETED PLEASE REFER TO NUTRITION ASSESSMENT UNDER CARE ACTIVITY FOR ESTIMATED NUTRITIONAL NEEDS. 1. CONTINUE FULL DIET TOLERATED 2. WHEN MEDICALLY CLEARED ADVANCE TO REGULAR DIET 3. RD TO FOLLOW-UP 3-5 DAYS, MODERATE RISK JENNY MACHADO, RD
--- NOTE | 2021-01-10 14:25 | NUR ---
PATIENT IN BED WATCHING TV. NO NOTED DISTRESS AT THIS TIME. CALL LIGHT WITHIN REACH. WILL CONTINUE TO MONITOR.
[2021-01-10 16:00] VITALS: BP 112/72
--- NOTE | 2021-01-10 16:20 | NUR ---
TAMI 20G DISLODGED. IV ACCESS INSERTED TO LEFT HAND 24G USING ASEPTIC TECHNIQUE. PATIENT TOLERATED WELL. COVID PCR COLLECTED AND SENT TO LAB. DROPLET PRECAUTION IN PLACE PER DR MORENO.
--- NOTE | 2021-01-10 18:05 | NUR ---
PATIENT IN BED TALKING TO FAMILY. NO NOTED DISTRESS AT THIS TIME. PATIENT WAS CONCERNED ABOUT HER CHILDREN AT HOME AND HER HAD TO WORK. PATIENT WAS MADE AWARE THAT POSSIBLE DISCHARGE TOMORROW. PATIENT WAS GIVEN OPTION OF AMA, WITH RISKS AND BENEFITS PROVIDED. PATIENT STATED SHE WILL DECIDE AND LET STAFF KNOW. WILL CONTINUE TO MONITOR. WILL ENDORSE TO NIGHT NURSE.
--- NOTE | 2021-01-10 19:25 | NUR ---
ENDORSED PATIENT TO NIGHT NURSE. PATIENT IN STABLE CONDITION.
--- NOTE | 2021-01-10 19:26 | NUR ---
RECD. RESTING IN BED, AWAKE, A/OX4. RESPIRATION EVEN AND UNLABORED. IV OF NS INFUSING AT 70 ML/HR LEFT HAND G24. AMBULATORY TO THE BR. STATED SHE IS HAVING LOOSE BOWEL MOVEMENT BETWEEN SMALL AND MODERATE AMOUNT, COLORED BROWN, ADDED SHE HAS NOT BEEN EATING SOLID SINCE YESTERDAY MAYBE THAT IS WHY SHE IS HAVING LOOSE STOOLS. INSTRUCTED NOT TO FLUSH IF SHE WILL HAVE ANOTHER BM AND CALL NURSE TO SEE HOW IT LOOKS LIKE FOR DOCUMENTATION.PRN MEDICATIONS AVAILABLE FOR THE SHIFT DISCUSSED WITH PATIENT. VERBALIZED UNDERSTANDING. DENIES PAIN 0/10.
[2021-01-10 20:00] VITALS: BP 119/72
--- NOTE | 2021-01-10 20:00 | NUR ---
DISCUSSED PLAN OF CARE WITH PRANEETH MILAN AND BOTH AGREED. PT NOT IN ANY DISTRESS. NO COMPLAIN AT THIS TIME. CALL LIGHT WITHIN REACH. WILL CONTINUE OBSERVATION.
--- NOTE | 2021-01-10 21:30 | NUR ---
CONVERSING WITH SOMEBODY IN HER CELLPHONE. JUICES GIVEN PER REQUESTED.
--- NOTE | 2021-01-11 | NUR ---
SLEEPING COMFORTABLY IN BED.
[2021-01-11] MEDS: NACL 0.9% 1,000 ML IV SCH ×2 (00:22→01:56)
--- NOTE | 2021-01-11 01:30 | NUR ---
AWAKE, AMBULATED TO BR TO VOID, BACK TO BED AFTER VOIDING.
--- NOTE | 2021-01-11 03:30 | NUR ---
RESTING COMFORTABLY IN BED ASLEEP ON HER RIGHT SIDE.
--- NOTE | 2021-01-11 05:30 | NUR ---
NO NAUSEA/VOMITING NOTED DURING THE SHIFT. DENIES HAVING DIARRHEA.
--- NOTE | 2021-01-11 06:50 | NUR ---
CONDITION REMAIN STABLE. NO COMPLAINT OF PAIN 0/10. DURING SHIFT. VERBALIZED WANTS TO GO HOME THIS MORNING. WILL ENDORSE TO AM SHIFT NURSE FOR CONTINUITY OF CARE.
--- NOTE | 2021-01-11 07:20 | NUR ---
ENDORSED TO AM SHIFT NURSE FOR CONTINUITY OF CARE.
--- NOTE | 2021-01-11 07:30 | NUR ---
RECEIVED BEDSIDE REPORT FROM PAD MACHINE FEEDER NURSE. PATIENT IS AWAKE, ALERT, AND COOPERATIVE. RESPIRATION EVEN UNLABORED ON ROOM AIR. NO DISTRESS. SKIN IS WARM AND DRY. IV PATENT AND INTACT. PLAN OF CARE WAS DISCUSSED. ALL SAFETY MEASURES IN PLACE. BED IS AT LOW POSITION. CALL LIGHT WITHIN REACH WILL CONTINUE TO MONITOR.
[2021-01-11 08:00] VITALS: BP 96/56
[2021-01-11] MEDS: LACTOBACILLUS RHAMNOSUS GG 1 EACH CAP PO SCH (09:02)
--- NOTE | 2021-01-11 09:12 | NUR ---
NOT ABLE TO SCAN PATIENT WRISTBAND DUE TO PATIENT BEING ON DROPLET PRECAUTIONS. ENTERED IDENTIFICATION NO. VERIFIED WITH TWO IDENTIFIERS DATE OF AND NAME
--- NOTE | 2021-01-11 10:20 | NUR ---
CHECKED ON PATIENT. PATIENT IS TALKING ON THE PHONE. NO DISTRESS NOTED. WILL CONTINUE TO MONITOR
[2021-01-11 12:00] VITALS: BP 110/65
[2021-01-11 12:16] VITALS: BP 110/65
--- NOTE | 2021-01-11 13:20 | NUR ---
PATIENT DISCHARGED FROM FACILITY. PATIENT STABLE AND ALERT. PATIENT GIVEN DISCHARGE INSTRUCTIONS. IV REMOVED. ALL BELONGING TAKEN BY PATIENT. PATIENT TRANSPORTED HOME BY .
== END 2021-01-11 13:20 | disposition home or self-care (01) | DRG 463 ==
LOC: MED 08:06 → MTU 15:31 → EEVIPCON 15:31 → MTU 15:52
PROVIDERS: ADMIT Family Medicine; ATTEND Family Medicine
DX: N39.0 Urinary tract infection, site not specified (principal); K76.0 Fatty (change of) liver, not elsewhere classified; E44.1 Mild protein-calorie malnutrition; E87.8 Other disorders of electrolyte and fluid balance, not elsewhere classified; E83.51 Hypocalcemia; R74.01 Elevation of levels of liver transaminase levels; Z20.822 Contact with and (suspected) exposure to COVID-19; D64.9 Anemia, unspecified; A08.4 Viral intestinal infection, unspecified; A09 Infectious gastroenteritis and colitis, unspecified; Z79.899 Other long term (current) drug therapy; Z90.49 Acquired absence of other specified parts of digestive tract; Z68.30 Body mass index [BMI] 30.0-30.9, adult; N83.202 Unspecified ovarian cyst, left side
CPT/HCPCS: 36415; 71045; 76705; 76830; 76856; 80053; 80305; 81001; 82150; 83036; 83690; 83735; 83880; 84100; 84439; 84443; 84484; 85025; 85610; 85730; 86140; 86704; 86706; 86708; 86709; 86803; 87070; 87081; 87340; 96361; 96365; 96375; 99285; J0696; J1885; J2270; J2405; J3490; J7030; J7060; Q9967; U0003

== ENCOUNTER 2022-06-27 13:16 | Inpatient (IN) | payer MEDICAID ==
[~2022-06-27] VITALS: Ht 157.5 cm; Wt 71.7 kg
[2022-06-27 13:39] VITALS: BP_SYST 114
--- NOTE | 2022-06-27 13:52 | NUR ---
Dr. Oglesby made aware of pt presentation; evaluation pt in triage room at this time. rail operations controller Odalys #[id number]
[2022-06-27] MEDS ORDERED: METOCLOPRAMIDE 10 MG/2 ML INJ VIAL IVP ONE (14:10)
[2022-06-27] MEDS ORDERED: ACETAMINOPHEN 325 MG TAB PO ONE (14:10)
[2022-06-27] MEDS ORDERED: NACL 0.9% 1,000 ML IV ONE (14:10)
[2022-06-27] MEDS ORDERED: diphenhydrAMINE 50 MG/ML VIAL IVP ONE (14:10)
--- NOTE | 2022-06-27 14:12 | NUR ---
PT AMBULATED TO ER BED 12
[2022-06-27 14:47] LABS: BASOPHILS % (AUTO) 0.5 % (0.0-2.0); EOSINOPHILS # (AUTO) 0.2 K/uL (0-0.4); EOSINOPHILS % (AUTO) 2.7 % (0.0-4.0); HEMOGLOBIN 12.7 g/dL (12.0-16.0); LYMPHOCYTES # (AUTO) 3.1 K/uL (2.5-16.5); LYMPHOCYTES % (AUTO) 43.3 % (20.5-51.1); MEAN CORPUSCULAR HEMOGLOBIN 30 pg (27-31); MEAN CORPUSCULAR HGB CONC 34 g/dL (33-37); MONOCYTES # (AUTO) 0.5 K/uL (0.8-1.0); MONOCYTES % (AUTO) 7.3 % (1.7-9.3); NEUTROPHILS # (AUTO) 3.3 K/uL (1.8-7.7); NEUTROPHILS % (AUTO) 46.2 % (42.2-75.2); PLATELET COUNT (AUTO) 248 K/uL (140-450); RED BLOOD CELL COUNT(AUTO) 4.32 MIL/uL (4.20-5.40); RED CELL DISTRIBUTION WIDTH 13.2 % (11.6-13.7); WHITE BLOOD COUNT (AUTO) 7.2 K/uL (4.8-10.8)
--- NOTE | 2022-06-27 15:05 | NUR ---
41F presents to ED with c/o right sided facial swelling/numbness [id number], and ABD pain x1day. Pt reports constant, aching like, 10/10 right sided head pain that radiates to right arm, blurred vision in right eye, and generalized weakness. Pt reports ABD pain began yesterday, an intermittent, burning like, pain in all 4 quadrants. Pt states she took tylenol for pain with no relief, denies taking meds today. Pt denies fevers, chills, and N/V/D. Pt changed into gown and placed on bedside monitor.
[2022-06-27 15:07] LABS: ALBUMIN 3.6 g/dL (3.4-5.0); ANION GAP 7.5 (8-16); ASPARTATE AMINOTRANSFERASE 22 U/L (15-37); CARBON DIOXIDE 29.1 mmol/L (21-32); CHLORIDE 104 mmol/L (98-107); CREATININE 0.6 mg/dL (0.6-1.3); GFR ARICAN-AMERICAN 142 mL/min (>90); GLUCOSE 94 mg/dL (74-106); POTASSIUM 3.6 mmol/L (3.5-5.1); SODIUM SERUM 137 mmol/L (136-145); TOTAL BILIRUBIN 0.3 mg/dL (0.0-1.0); UREA NITROGEN, BLOOD 14 mg/dL (7-18)
--- NOTE | 2022-06-27 15:31 | NUR ---
Pt taken to CT by w/c.
[2022-06-27 15:37] LABS: APPEARANCE,URINE SL CLOUDY (CLEAR); BILIRUBIN,URINE NEGATIVE (NEGATIVE); BLOOD, URINE TRACE-I (NEGATIVE); COLOR,URINE YELLOW (YELLOW); LEUKOCYTE ESTERASE ,URINE 1+ (NEGATIVE); NITRITE, URINE NEGATIVE (NEGATIVE); UGLUCOSE NEGATIVE (NEGATIVE)
[2022-06-27 15:59] LABS: OTHER CASTS, URINE None Seen /LPF (None Seen)
--- NOTE | 2022-06-27 16:58 | NUR ---
Swab collected and walked to lab.
[2022-06-27] MEDS ORDERED: cefTRIAXone 1,000 MG VIAL ONE (18:40)
--- NOTE | 2022-06-27 19:15 | NUR ---
Pt report given to ALISA Monteiro. Transfer of care at this time.
[2022-06-27] MEDS ORDERED: MAG SULF 2000 MG/WATER PREMIX 50 ML IV PRN (21:45)
[2022-06-27] MEDS ORDERED: POTASSIUM CHLORIDE 40 MEQ, LIDOCAINE MPF 1% 25 MG in NACL 0.9% 250 ML IV PRN (21:45)
[2022-06-27] MEDS ORDERED: ONDANSETRON 4 MG/2 ML VIAL IM/IVP PRN (21:45)
[2022-06-27] MEDS ORDERED: DOCUSATE SODIUM 100 MG GELCAP PO PRN (21:45)
[2022-06-27] MEDS ORDERED: MORPHINE SULFATE 2 MG/ML SYR IVP PRN (21:45)
[2022-06-27] MEDS ORDERED: ACETAMINOPHEN 325 MG TAB PO PRN (21:45)
[2022-06-27] MEDS ORDERED: SODIUM PHOS / POTASSIUM PHOS 1 PKT PDR PO PRN (21:45)
[2022-06-27] MEDS ORDERED: HYDROcodone/APAP 5/325 MG 1 TAB TAB PO PRN (21:45)
[2022-06-27 22:20] LABS: CHOL/HDL RATIO 3.1 (1-4.5); PHOSPHORUS 3.5 mg/dL (2.5-4.9); THYROID STIMULATING HORMONE 2.08 uIU/mL (0.34-3.74)
[2022-06-28] MEDS: NACL 0.9% 1,000 ML IV SCH ×2 (03:48→21:45)
--- NOTE | 2022-06-28 04:04 | NUR ---
PATIENT RESTING IN BED WITH EYES CLOSED. RR EVEN AND UNLABORED. BED LOW AND LOCKED. JUICE SIDE RAILS UP FOR SAFTEY. ALL NEEDS MET.
--- NOTE | 2022-06-28 07:20 | NUR ---
REPORT GIVEN TO ALISA BAKER. TRANSFER OF CARE.
--- NOTE | 2022-06-28 07:36 | NUR ---
PT CALM AND RESTING. VITALS STABLE. BACK FROM US. IV NS MAINTAINANCE FLUID RUNNING. PT REPORTS DECREASED NUMBNESS AND DENIES HEADACHE AT THIS TIME.
[2022-06-28 07:55] LABS: ANION GAP 11.5 (8-16); BASOPHILS % (AUTO) 0.5 % (0.0-2.0); CARBON DIOXIDE 28.5 mmol/L (21-32); CREATININE 0.6 mg/dL (0.6-1.3); EOSINOPHILS # (AUTO) 0.2 K/uL (0-0.4); EOSINOPHILS % (AUTO) 2.9 % (0.0-4.0); HEMATOCRIT 35.6 % (36-48); HEMOGLOBIN 11.8 g/dL (12.0-16.0); LYMPHOCYTES # (AUTO) 2.6 K/uL (2.5-16.5); LYMPHOCYTES % (AUTO) 33.8 % (20.5-51.1); MEAN CORPUSCULAR HEMOGLOBIN 30 pg (27-31); MEAN CORPUSCULAR HGB CONC 33 g/dL (33-37); MEAN CORPUSCULAR VOLUME 88.9 fL (80-94); MONOCYTES # (AUTO) 0.4 K/uL (0.8-1.0); MONOCYTES % (AUTO) 5.7 % (1.7-9.3); NEUTROPHILS # (AUTO) 4.4 K/uL (1.8-7.7); NEUTROPHILS % (AUTO) 57.1 % (42.2-75.2); PLATELET COUNT (AUTO) 236 K/uL (140-450); RED CELL DISTRIBUTION WIDTH 13.7 % (11.6-13.7); WHITE BLOOD COUNT (AUTO) 7.7 K/uL (4.8-10.8)
--- NOTE | 2022-06-28 08:37 | NUR ---
PT MOVED TO ER BED 7
[2022-06-28] MEDS: PANTOPRAZOLE 40 MG TABEC PO SCH (09:17)
--- NOTE | 2022-06-28 16:25 | NUR ---
PT C/O 03/05 HEADACHE. WILL CARRY OUT ORDER
--- NOTE | 2022-06-28 19:35 | NUR ---
REPORT GIVEN TO LAUREN CUELLAR. TRANSFER OF CARE AT THIS TIME
--- NOTE | 2022-06-28 20:00 | NUR ---
resting in bed with eyes closed respirations regular and unlabored.
[2022-06-28] MEDS ORDERED: cefTRIAXone 1,000 MG VIAL ONE (20:19)
--- NOTE | 2022-06-29 04:00 | NUR ---
AWAKE, AMBULATED TO WITH STEADY GAIT, RETURNED TO BED AND MADE COMFORTABLE
[2022-06-29 05:32] LABS: BASOPHILS % (AUTO) 0.4 % (0.0-2.0); EOSINOPHILS # (AUTO) 0.1 K/uL (0-0.4); EOSINOPHILS % (AUTO) 1.8 % (0.0-4.0); HEMATOCRIT 35.2 % (36-48); HEMOGLOBIN 11.8 g/dL (12.0-16.0); LYMPHOCYTES # (AUTO) 2.8 K/uL (2.5-16.5); LYMPHOCYTES % (AUTO) 35.1 % (20.5-51.1); MEAN CORPUSCULAR HEMOGLOBIN 29 pg (27-31); MEAN CORPUSCULAR HGB CONC 34 g/dL (33-37); MEAN CORPUSCULAR VOLUME 87.8 fL (80-94); MONOCYTES # (AUTO) 0.4 K/uL (0.8-1.0); MONOCYTES % (AUTO) 4.9 % (1.7-9.3); NEUTROPHILS # (AUTO) 4.6 K/uL (1.8-7.7); NEUTROPHILS % (AUTO) 57.8 % (42.2-75.2); PLATELET COUNT (AUTO) 240 K/uL (140-450); RED BLOOD CELL COUNT(AUTO) 4.01 MIL/uL (4.20-5.40); RED CELL DISTRIBUTION WIDTH 13.3 % (11.6-13.7)
[2022-06-29 05:41] LABS: ANION GAP 8.8 (8-16); CARBON DIOXIDE 28.9 mmol/L (21-32); CREATININE 0.6 mg/dL (0.6-1.3); POTASSIUM 3.7 mmol/L (3.5-5.1)
--- NOTE | 2022-06-29 07:30 | NUR ---
REPORT RECEIVED FROM LAUREN CUELLAR . ASSUMED CARE AT THIS TIME
--- NOTE | 2022-06-29 07:35 | NUR ---
pt at rest w/ eyes closed. respirations even and unlabored. on quality assurance monitor
--- NOTE | 2022-06-29 08:10 | NUR ---
Patient will be admitted to care of MD SAEZ. Admited to TELE. Will go to room 104A. Belongings list completed. Report to BASIL CUELLAR .
[2022-06-29 08:25] VITALS: BP 117/80
--- NOTE | 2022-06-29 08:53 | NUR ---
RECEIVED PATIENT FROM ED VIA [employer]. A/O X4. VSS. AFEBRILE. RESPIRATIONS EVEN AND UNLABORED. NO SOB NOTED. DENIES NUMBNESS OR PAIN AT THIS TIME. PATIENT STATES SHE FEELS FINE AND WANTS TO GO HOME. DR. JACK CALLED AND NOTIFIED AND STATES SHE WILL BE HERE AT 2PM TO ROUND. PATIENT INFORMED AND STATES SHE WILL WAIT TO SEE DOCTOR WHEN SHE ROUNDS. ORIENTED TO ROOM AND CALL LIGHT SYSTEM. NO ACUTE DISTRESS NOTED. WILL CONTINUE TO MONITOR FOR SAFETY. Fritz HIDALGO RN.
[2022-06-29] MEDS: PANTOPRAZOLE 40 MG TABEC PO SCH (09:33)
--- NOTE | 2022-06-29 10:20 | NUR ---
PATIENT HAS BEEN SCREENED AND CATEGORIZED LOW NUTRITION RISK. PATIENT WILL BE SEEN WITHIN 7 DAYS OF ADMISSION. 06/27/22-07/04/[address]
[2022-06-29 12:00] VITALS: BP 108/76
[2022-06-29 16:00] VITALS: BP 105/69
[2022-06-29 16:22] VITALS: BP 105/69
--- NOTE | 2022-06-29 16:45 | NUR ---
DISCHARGE INSTRUCTIONS AND PLAN OF CARE DISCUSSED WITH PATIENT. PATIENT VERBALIZED UNDERSTANDING. IV DISCONTINUED. PATIENT DISCHARGED HOME WITH FAMILY. Fritz HIDALGO RN.
== END 2022-06-29 16:40 | disposition home or self-care (01) | DRG 58 ==
LOC: MED 13:16 → MTU 17:47
PROVIDERS: ADMIT Hospitalist; ATTEND Hospitalist
DX: R20.0 Anesthesia of skin (principal); K76.0 Fatty (change of) liver, not elsewhere classified; E78.5 Hyperlipidemia, unspecified; Z20.822 Contact with and (suspected) exposure to COVID-19; R51.9 Headache, unspecified
CPT/HCPCS: 36415; 70450; 71045; 80048; 80053; 81001; 83036; 83735; 84100; 84443; 84484; 85025; 87086; 93005; 93880; 96361; 96365; 96375; 99285; J0696; J1200; J2270; J2765; J7030; J7060; Q0092; Q9967